=== PATIENT | female | born 1980 | race Caucasian/White ===

== ENCOUNTER → 2016-11-13 | Outpatient (CLI) | payer OTHER ==
[~2016-11-13] MED LIST: AVIATAB PO; TYLE650T30 PO
[2016-11-13 18:10] LABS: BASO % 0.4 % (0.0-1.0); EOS # 0.1 K/mm3 (0.0-0.50); LARGE UNSTAINED CELL # 0.2 K/mm3 (0.0-0.4); LARGE UNSTAINED CELL % 3.9 % (0.0-4.0); LYMPH # 1.5 K/mm3 (1.5-4.5); LYMPH % 24.4 % (24.0-44.0); MEAN CORPUSCULAR HEMOGLOBIN 32.8 pg (27.0-33.0); MEAN CORPUSCULAR HGB CONC 33.9 g/dl (32.0-36.5); MEAN CORPUSCULAR VOLUME 96.6 fl (80.0-96.0); MONO # 0.3 K/mm3 (0.0-0.8); MONO % 4.8 % (0.0-5.0); NEUTROPHILS # 3.8 K/mm3 (1.8-7.7); NEUTROPHILS % 64.4 % (36.0-66.0); PLATELET COUNT, AUTOMATED 269 k/mm3 (150-450); RED CELL DISTRIBUTION WIDTH 11.1 % (11.5-14.5); WHITE BLOOD COUNT 5.9 K/mm3 (4.0-10.0)
[2016-11-14 14:26] LABS: HIV SCRN NEGATIVE (NEGATIVE); HIV SCRN1 NEGATIVE (NEGATIVE)
[2016-11-14 14:27] LABS: CONTROL LINE INT CTR LINE PRESENT
[2016-11-15 11:04] LABS: HBsAg Prenatal NEGATIVE (NEGATIVE)
== END ==
LOC: M SMT 15:29
PROVIDERS: ATTEND Advanced Practice Midwife
DX: Z34.81 Encounter for supervision of other normal pregnancy, first trimester (principal); Z36 Encounter for antenatal screening of mother

== ENCOUNTER → 2017-04-05 | Outpatient (CLI) | payer OTHER ==
[~2017-04-05] MED LIST changes: +ACET50TA PO; +IBUP-1114 PO; +PREN1TAB11 PO
[2017-04-05 15:05] LABS: BASO % 0.2 % (0.0-1.0); EOS # 0.1 K/mm3 (0.0-0.50); LARGE UNSTAINED CELL # 0.1 K/mm3 (0.0-0.4); LYMPH # 1.2 K/mm3 (1.5-4.5); LYMPH % 15.4 % (24.0-44.0); MEAN CORPUSCULAR HEMOGLOBIN 32.1 pg (27.0-33.0); MEAN CORPUSCULAR HGB CONC 34.7 g/dl (32.0-36.5); MEAN CORPUSCULAR VOLUME 92.6 fl (80.0-96.0); MONO # 0.2 K/mm3 (0.0-0.8); MONO % 3.4 % (0.0-5.0); NEUTROPHILS # 5.5 K/mm3 (1.8-7.7); NEUTROPHILS % 77.9 % (36.0-66.0); PLATELET COUNT, AUTOMATED 213 k/mm3 (150-450); RED CELL DISTRIBUTION WIDTH 12.4 % (11.5-14.5)
== END ==
LOC: M SMT 12:59 → MERGE 12:59
PROVIDERS: ATTEND Advanced Practice Midwife
DX: O09.513 Supervision of elderly primigravida, third trimester (principal)

== ENCOUNTER → 2017-04-12 | Outpatient (CLI) | payer OTHER ==
--- NOTE | 2017-04-13 08:11 | REP ---
Clinical: Growth evaluation. Comparison: 03/06/2017 . Findings: Examination demonstrates a single live intrauterine in cephalic presentation. motion is identified by technologist. Placenta is noted anteriorly and grade zero without evidence for placenta previa or abruption. Amniotic fluid volume is normal. Cervix measures 4.0 cm in length and appears closed. No evidence for nuchal cord. Gestational age by LMP 28 weeks 6 days with LUCHO 06/29/2017 . Gestational age by current measurements 27 weeks 5 days with LUCHO 07/07/2017 . FHR equals 133 beats per minute. Estimated weight 1127 grams ( 44th percentile). Amniotic fluid index equals 13.8 cm (9.4 - 22.7). Impression: Single live advanced gestation in cephalic presentation demonstrating appropriate interval growth. Estimated weight and amniotic fluid index are within normal range. Signed by Naeem Kimble MD 04/13/2017 04:32 A
== END ==
LOC: M WHC 09:59
PROVIDERS: ATTEND Specialist
DX: O36.5921 Maternal care for other known or suspected poor fetal growth, second trimester, fetus 1 (principal); Z3A.28 28 weeks gestation of pregnancy

== ENCOUNTER → 2017-04-16 | Outpatient (CLI) | payer OTHER | LOC: M LAB 07:49 → MERGE 09:49 | PROVIDERS: ATTEND Specialist | DX: O09.512 Supervision of elderly primigravida, second trimester (principal) ==

== ENCOUNTER → 2017-05-04 | Outpatient (CLI) | payer OTHER ==
--- NOTE | 2017-05-04 12:00 | REP ---
OB ULTRASOUND: Real-time sonographic evaluation of the gravid uterus is performed. There is a single living intrauterine gestation. Estimated gestational age 32 weeks 0 days, EDC 06/29/2017. Today's measurements indicate appropriate growth. Biometry and Growth: BPD 79 mm = 31 weeks 5 days, 45th percentile HC 299 mm = 33 weeks 1 day, 67th percentile AC 261 mm = 30 weeks 1 day, 23rd percentile FL 58 mm = 30 weeks 2 days, 25th percentile HC/AC ratio 1.15 slightly above normal range of 0.95 to 1.14. Estimated weight 1611 grams 17th percentile. stomach, kidneys, bladder and spine are visualized and are grossly unremarkable. Cervical length: Closed and measures 4.2 cm in length heart rate: 136 beats per minute. position: Vertex. Placenta: Anterior and grade 0 with no previa or abruption. Amniotic fluid: Amniotic fluid within normal limits, ADALID 12.5 within normal range of 8.6 to 24.2. S/D ratio 3.40 within normal range. RI 0.76, slightly above normal range of 0.59 to 0.75.
== END ==
LOC: M WHC 10:21
PROVIDERS: ATTEND Obstetrics & Gynecology
DX: Z34.82 Encounter for supervision of other normal pregnancy, second trimester (principal); Z36 Encounter for antenatal screening of mother; Z3A.32 32 weeks gestation of pregnancy

== ENCOUNTER → 2017-05-22 | Outpatient (CLI) | payer OTHER ==
--- NOTE | 2017-05-22 14:57 | REP ---
Clinical: Growth evaluation. Comparison: 05/04/2017 . Findings: Examination demonstrates a single live intrauterine in cephalic presentation. motion is identified by technologist. Placenta is noted anteriorly and grade one without evidence for placenta previa or abruption. Amniotic fluid volume is normal. Gestational age by LMP 34 weeks 4 days with LUCHO 06/29/2017 . Gestational age by current measurements 32 weeks 4 days with LUCHO 07/13/2017 . FHR equals 147 beats per minute. BPD 8.4 cm 33 weeks 4 days HC 30.1 cm 33 weeks 3 days AC 28.6 cm 32 weeks 4 days FL 6.3 cm 32 weeks 4 days HC/AC ratio 1.05 Estimated weight 2040 grams ( 15th percentile). Umbilical cord SD ratio 3.45 (2.00 - 3.00). Amniotic fluid index 7.6 cm (8.0 - 24.9). Impression: 1. Single live advanced intrauterine in cephalic presentation demonstrating relatively appropriate interval growth with the estimated weight remaining within normal range. 2. Amniotic fluid volume is low normal. 3. SD ratio is minimally elevated. Signed by Naeem Kimble MD 05/22/2017 02:49 P
== END ==
LOC: M SMT 13:57
PROVIDERS: ATTEND Advanced Practice Midwife
DX: O26.843 Uterine size-date discrepancy, third trimester (principal); Z3A.34 34 weeks gestation of pregnancy

== ENCOUNTER → 2017-05-29 | Outpatient (CLI) | payer OTHER ==
--- NOTE | 2017-05-30 06:07 | REP ---
OB ULTRASOUND AND BIOPHYSICAL PROFILE: Real-time sonographic evaluation of the gravid uterus performed. There is a single living intrauterine gestation. Estimated gestational age 35 weeks 4 days. EDC 06/29/2017. Cervix is not well visualized due to shadowing from the cranium. heart rate is 141 beats per minute. Amniotic fluid appears low for the estimated gestational age. ADALID is measured to be 6.4 which is below normal range of 7.8 - 24.9. Biophysical profile score is 4 out of 8 with no points for tone or movement. S/d ratio 2.85 within normal range of 2.0 - 3.0. RI 0.65 within normal range of 0.59 - 0.75. position vertex. Placenta is anterior and on the right, grade 1 with no previa or abruption. IMPRESSION: Biophysical profile score 4 out of 8.
== END ==
LOC: M WHC 14:28
PROVIDERS: ATTEND Advanced Practice Midwife
DX: O26.843 Uterine size-date discrepancy, third trimester (principal); Z3A.35 35 weeks gestation of pregnancy

== ENCOUNTER 2017-05-30 09:19 | Outpatient (CLI) | payer OTHER ==
[~2017-05-30] VITALS: Ht 170.2 cm; Wt 68.4 kg
[~2017-05-30 09:19] MED LIST changes: -ACET50TA PO; -IBUP-1114 PO; -PREN1TAB11 PO
[2017-05-30 09:38] VITALS: BP 113/73
[2017-05-30] MEDS ORDERED: PREN1TAB11 PO (09:40)
[2017-05-30 11:05] VITALS: BP 101/67
== END 2017-05-30 11:27 | disposition home or self-care (01) ==
LOC: M LDO 09:19
PROVIDERS: ATTEND Specialist
DX: Z34.83 Encounter for supervision of other normal pregnancy, third trimester (principal); Z3A.35 35 weeks gestation of pregnancy

== ENCOUNTER 2017-06-05 15:03 | Inpatient (IN) | payer OTHER ==
[~2017-06-05] VITALS: Ht 170.2 cm; Wt 68.7 kg
[~2017-06-05 15:03] MED LIST changes: -ACET50TA PO; -IBUP-1114 PO
[2017-06-05] MEDS: BETAMETHASONE SOLUSPAN 6MG/ML INJ 5ML (J0702) IM SCH (16:30)
[2017-06-05 17:02] LABS: MEAN CORPUSCULAR HEMOGLOBIN 30.4 pg (27.0-33.0); MEAN CORPUSCULAR HGB CONC 33.4 g/dl (32.0-36.5); RED CELL DISTRIBUTION WIDTH 12.5 % (11.5-14.5); WHITE BLOOD COUNT 8.4 10^3/uL (4.0-10.0)
[2017-06-05 20:09] VITALS: BP 102/56
[2017-06-05 23:48] VITALS: BP 100/67
[2017-06-05] MEDS: miSOPROStol 50 MCG 1/2 TAB (S0191) PO SCH (23:48)
[2017-06-06] VITALS (46 sets, daily range): BP systolic 94–126; BP diastolic 50–74
[2017-06-06] MEDS: BETAMETHASONE SOLUSPAN 6MG/ML INJ 5ML (J0702) IM SCH (05:27)
--- NOTE | 2017-06-06 05:29 | HPE ---
DATE OF ADMISSION: 06/05/2017 REASON FOR ADMISSION: Induction of labor secondary to oligohydramnios. HISTORY OF PRESENT ILLNESS: Mrs. Rene is a 36-year-old one who presents at 36 weeks and one day estimated gestational age by last menstrual period confirmed by first trimester ultrasound for induction of labor secondary to oligohydramnios with intrauterine growth restriction in the eighth percentile. Mrs. Rene's course has been complicated by concerns for intrauterine growth restriction. She was noted to be measuring at 16 percentile on her anatomy ultrasound. She has been followed with serial growth ultrasounds, as well as antepartum testing. On today's scheduled appointment, she was noted to have an amniotic fluid index (ADALID) of 4.3 with a 6/8 biophysio-profile. She was then sent to labor and delivery on my recommendation for induction of labor. PAST MEDICAL HISTORY: None. PAST SURGICAL HISTORY: None. PAST OBSTETRICAL HISTORY: She is 1, para 0. MEDICATIONS: Include vitamins. ALLERGIES: She has no known drug allergies. SOCIAL HISTORY: She denies any alcohol, tobacco or drug use during the . PHYSICAL EXAMINATION: VITAL SIGNS: Stable. She is afebrile. GENERAL APPEARANCE: Is well appearing. No acute distress. She has a category one heart trace with no contractions. LUNGS: Clear to auscultation bilaterally. CARDIOVASCULAR: Heart regular rate and rhythm. ABDOMEN: Soft, gravid, nontender. CERVICAL EXAM: Cervix is long and closed. LABORATORY DATA: Blood type is O positive. Antibody screen is negative. Rubella immune. RPR nonreactive. Hepatitis surface antigen negative. HIV negative. Hepatitis C nonreactive. Chlamydia and gonorrhea screen negative. She has an elevated one-hour Glucola with a normal glucose tolerance test. Her GBS status is unknown. ASSESSMENT: 1. Mrs. Rene is a 36-year-old 1 at 36 weeks and one day with oligohydramnios. 2. Intrauterine growth restriction. 3. Currently reassuring status with category one heart tracing. PLAN: 1. Admit to labor and delivery. Complete blood count (CBC), rapid plasma reagin (RPR), type and screen. 2. We will initiate steroids for lung maturity. I will also collect a group B strep vaginal and rectal culture. 3. I will initiate her induction of labor with 50 mcg 4. I have counseled the couple regarding her diagnosis and plan of care. She has also been verbal consented for emergency surgery, blood products and anesthesia, and desires to proceed with above plan. NITA
[2017-06-06] MEDS: miSOPROStol 50 MCG 1/2 TAB (S0191) PO SCH ×2 (06:11→10:39)
[2017-06-06] MEDS ORDERED: PROMETHAZINE INJ 25 MG/ML VIAL (J2550) IV ONE (13:00)
[2017-06-06] MEDS ORDERED: BUTORPHANOL 2 MG/ML INJ (J0595) IV ONE (13:00)
[2017-06-06] MEDS ORDERED: LACTATED RINGER'S 1000 ML IV STA (14:19)
[2017-06-06] MEDS ORDERED: LR 1,000 ML IV SCH (14:19)
[2017-06-06] MEDS ORDERED: PENICILLIN G POTASSIUM IV 5 MU in D5W MINI-BAG PLUS 100 ML IV STA (14:20)
[2017-06-06] MEDS ORDERED: OXYTOCIN DRIP 30 UNITS in APPROPRIATE DILUENT 1 EA IV SCH (14:30)
[2017-06-06] MEDS ORDERED: FENTANYL 2MCG/ML ROPIVACAINE 0.2% IN 0.9% NACL 200ML IVBAG As Ordered ONE (15:25)
[2017-06-06] MEDS ORDERED: REFRIGERATOR IV KEYS XX PRN (18:00)
[2017-06-06] MEDS ORDERED: NALOXONE INJ 0.4 MG/1 ML VIAL (J2310) IV PRN (18:00)
[2017-06-06] MEDS ORDERED: ePHEDrine SULFATE 25 MG/5 ML(5MG/ML) SYRINGE IV PRN (18:00)
[2017-06-06] MEDS ORDERED: EPIDURAL/PCA KEYS XX PRN (18:00)
[2017-06-06] MEDS ORDERED: FENTANYL/ROPIVACAINE/NACL BAG 200 ML EPIDURAL SCH (18:00)
[2017-06-06] MEDS ORDERED: EPIDURAL COMMENT XX SCH (18:00)
[2017-06-06] MEDS ORDERED: LACTATED RINGER'S 1000 ML IV PRN (18:00)
[2017-06-06] MEDS ORDERED: diphenhydrAMINE INJ 50MG/ML VIAL (J1200) IV PRN (18:00)
[2017-06-06] MEDS ORDERED: ONDANSETRON 4MG/2ML VIAL (J2405) IV PRN (18:00)
[2017-06-06] MEDS: PENICILLIN G POTASSIUM IV 2.5 MU in D5W 100 ML IV SCH (18:20)
[2017-06-07] VITALS (33 sets, daily range): BP systolic 94–117; BP diastolic 55–77
[2017-06-07] MEDS: PENICILLIN G POTASSIUM IV 2.5 MU in D5W 100 ML IV SCH ×3 (02:22→10:35)
[2017-06-07 12:58] LABS: CORD GAS ABE A -0.7; CORD GAS HCO3 A 27.4 MEQ/L; CORD GAS O2 SAT A 24.1 %; CORD GAS PCO2 A 58.5 mmHg; CORD GAS PH A 7.289 UNITS; CORD GAS SBC A 21.9 MEQ/L; CORD GAS TCO2 A 29.2 MEQ/L
[2017-06-07 13:01] LABS: CORD GAS HCO3 V 23.5 MEQ/L; CORD GAS O2 SAT V 64.3 %; CORD GAS PCO2 V 42.7 mmHg; CORD GAS PH V 7.358 UNITS; CORD GAS PO2 V 25.3 mmHg; CORD GAS SBC V 21.9 MEQ/L; CORD GAS TCO2 V 24.8 MEQ/L
[2017-06-07] MEDS ORDERED: OXYTOCIN DRIP 30 UNITS in APPROPRIATE DILUENT 1 EA IV SCH (13:42)
--- NOTE | 2017-06-07 13:42 | DN ---
DATE: 06/05/2017 Jannette is a 36-year-old. 1, para 0-1-0-1 now who was admitted to labor and delivery for induction of labor due to oligohydramnios and intrauterine growth restriction (IUGR). She had a few doses of misoprostol, artificial rupture of membranes and IV Pitocin and labor did ensue. She did utilize an epidural for her labor coping. She progressed to full dilation at 11:48. She pushed to a normal spontaneous vaginal delivery of a live female infant in OA position with restitution to LOT position at 12:36. There was no nuchal cord. The shoulders delivered with gentle downward traction and the corpus immediately followed. The was placed on the maternal abdomen crying and active. Mouth and nares were bulb suctioned. The cord was clamped times two and cut by the father of the baby. Uterine hemostasis was achieved with IV Pitocin rapid infusion and uterine fundal massage. Estimated blood loss 350 mL. Perineum and vagina were inspected and noted to have a first-degree midline laceration with a right labial laceration. Both lacerations repaired under epidural anesthesia with #3-0 Rapide in the usual fashion. female weighed 4 pounds 12 ounces, 2106 grams, scores of 7 and 8. The family is undecided at this time of what they want to name their daughter and the mother plans to breastfeed. Delivery was performed by student nurse desk clerk, Frances Bueno, supervised by myself, Maxine Mayberry. At the close of delivery, lap counts, needle counts and instrument counts were correct and verified.
[2017-06-07] MEDS ORDERED: ANUSOL HC CREAM 30GM TOP PRN (13:45)
[2017-06-07] MEDS ORDERED: RHOGAM 300 MCG (1500 IU) INJ (J2790) IM SCH (13:45)
[2017-06-07] MEDS ORDERED: METHYLERGONOVINE MALEATE 0.2 MG TAB PO PRN (13:45)
[2017-06-07] MEDS ORDERED: DIBUCAINE 1% OINTMENT 30GM TOP PRN (13:45)
[2017-06-07] MEDS ORDERED: DOCUSATE SODIUM 100 MG CAP PO PRN (13:45)
[2017-06-07] MEDS ORDERED: MEASLES,MUMPS,RUBELLA VACCINE INJ (MMR-II) (90707) SC SCH (13:45)
[2017-06-07] MEDS: IBUPROFEN 600 MG TAB PO PRN ×2 (14:03→23:30)
[2017-06-07] MEDS: PRENATAL VITAMINS CHEWABLE TABLET PO SCH (20:13)
[2017-06-07] MEDS: ACETAMINOPHEN 500 MG TAB PO PRN (20:14)
[2017-06-08] MEDS: ACETAMINOPHEN 500 MG TAB PO PRN ×2 (03:10→14:05)
[2017-06-08 06:25] VITALS: BP 112/67
[2017-06-08] MEDS: PRENATAL VITAMINS CHEWABLE TABLET PO SCH (08:02)
[2017-06-08] MEDS: IBUPROFEN 600 MG TAB PO PRN ×2 (08:02→16:56)
[2017-06-08 18:19] VITALS: BP 103/65
[2017-06-09] MEDS: IBUPROFEN 600 MG TAB PO PRN (03:45)
[2017-06-09 06:13] VITALS: BP 101/61
[2017-06-09] MEDS: PRENATAL VITAMINS CHEWABLE TABLET PO SCH (07:49)
[2017-06-09] MEDS: ACETAMINOPHEN 500 MG TAB PO PRN (07:49)
[2017-06-09] MEDS ORDERED: ACET50TA PO (09:39)
[2017-06-09] MEDS ORDERED: IBUP-1114 PO (09:39)
== END 2017-06-09 10:30 | disposition home or self-care (01) | DRG 775 ==
LOC: M LDI 15:03 → M OBS 06-07 15:00
PROVIDERS: ADMIT Obstetrics & Gynecology; ATTEND Obstetrics & Gynecology
PROC: 10E0XZZ Delivery of Products of Conception, External Approach (ICD-10-PCS; principal; 2017-06-05)
PROC: 0HQ9XZZ Repair Perineum Skin, External Approach (ICD-10-PCS; 2017-06-05)
PROC: 3E033VJ Introduction of Other Hormone into Peripheral Vein, Percutaneous Approach (ICD-10-PCS; 2017-06-05)
PROC: 10907ZC Drainage of Amniotic Fluid, Therapeutic from Products of Conception, Via Natural or Artificial Opening (ICD-10-PCS; 2017-06-05)
DX: O41.03X0 Oligohydramnios, third trimester, not applicable or unspecified (principal); Z37.0 Single live birth; Z3A.36 36 weeks gestation of pregnancy; O09.523 Supervision of elderly multigravida, third trimester; O70.0 First degree perineal laceration during delivery

== ENCOUNTER → 2017-06-05 | Outpatient (CLI) | payer OTHER ==
[~2017-06-05] MED LIST changes: +ACET50TA PO; +IBUP-1114 PO; +PREN1TAB11 PO
--- NOTE | 2017-06-05 10:20 | REP ---
OB ULTRASOUND AND BIOPHYSICAL PROFILE: Real-time sonographic evaluation of the gravid uterus performed. There is a single living intrauterine gestation. The estimated gestational age is 36 weeks 4 days. EDC 06/29/2017. Today's measurements indicate appropriate growth. BPD 86 mm 34 weeks 6 days, 24th percentile HC 318 mm 35 weeks 6 days, 39th percentile AC 303 mm 34 weeks 2 days, 16th percentile FL 67 mm 34 weeks 2 days, 15th percentile HC/AC ratio 1.05 within normal range. Estimated weight 2440 grams, 18th percentile. heart rate 144 beats per minute. Amniotic fluid appears oligohydramnios with ADALID 4.3, below the normal range of 7.6 - 24.6. Biophysical profile score is 6 out of 8 with no points for movement. S/d ratio 3.0 with slightly above normal range of 1.77 - 2.77. RI 0.70 is within normal range of 0.59 - 0.75. The intracranial structures appear grossly unremarkable as does four chamber heart, stomach, kidneys, bladder and spine. position vertex. Placenta is anterior and grade 1 with no previa or abruption.
== END ==
LOC: M WHC 07:35
PROVIDERS: ATTEND Advanced Practice Midwife
DX: O26.843 Uterine size-date discrepancy, third trimester (principal)

== ENCOUNTER 2018-10-05 10:20 | Emergency (ER) | payer OTHER ==
[~2018-10-05] VITALS: Ht 170.2 cm; Wt 63.6 kg
[~2018-10-05 10:20] MED LIST changes: +IBUP-1114 PO; +MAPA500T2 PO
[2018-10-05] MEDS ORDERED: SRONYX PO (10:25)
[2018-10-05] MEDS ORDERED: NS 1,000 ML IV ONE (10:45)
[2018-10-05] MEDS ORDERED: KETOROLAC 30 MG/ML VIAL (J1885) IV ONE (11:15)
[2018-10-05 11:20] LABS: BASO % 0.7 % (0.0-1.0); EOS # 0.1 10^3/uL (0.0-0.50); EOS % 1.8 % (0.0-3.0); HEMOGLOBIN 13.5 g/dl (12.0-15.5); LYMPH % 22.9 % (24.0-44.0); MEAN CORPUSCULAR HEMOGLOBIN 32.2 pg (27.0-33.0); MEAN CORPUSCULAR HGB CONC 32.9 g/dl (32.0-36.5); MEAN CORPUSCULAR VOLUME 97.9 fl (80.0-96.0); MONO # 0.3 10^3/uL (0.0-0.8); MONO % 6.8 % (0.0-5.0); NEUTROPHILS % 67.6 % (36.0-66.0); PLATELET COUNT, AUTOMATED 226 10^3/uL (150-450); RED BLOOD COUNT 4.19 10^6/uL (4.00-5.40); WHITE BLOOD COUNT 4.4 10^3/uL (4.0-10.0)
[2018-10-05 11:48] LABS: ALBUMIN 3.9 GM/DL (3.2-5.2); ALT/SGPT 109 U/L (12-78); AMYLASE 66 U/L (25-115); BILIRUBIN,DIRECT 0.1 MG/DL (0.0-0.2); BILIRUBIN,TOTAL 0.4 MG/DL (0.2-1.0); BLOOD UREA NITROGEN 10 MG/DL (7-18); CARBON DIOXIDE LEVEL 26 MEQ/L (21-32); CHLORIDE LEVEL 102 MEQ/L (98-107); CREATININE FOR GFR 0.66 MG/DL (0.55-1.30); GLOMERULAR FILTRATION RATE > 60.0 (>60); GLUCOSE, FASTING 106 MG/DL (70-100); LIPASE 197 U/L (73-393); SODIUM LEVEL 136 MEQ/L (136-145); TOTAL PROTEIN 8.1 GM/DL (6.4-8.2)
--- NOTE | 2018-10-05 12:09 | REP ---
Clinical: Bilateral flank pain. Technique: Axial noncontrast images from the lung bases to the pubic symphysis with coronal and sagittal re-formations. Findings: Lung bases are clear. Liver, spleen, pancreas, gallbladder, bilateral adrenal glands and kidneys are normal for noncontrast evaluation. Specifically, no perinephric stranding, hydroureteronephrosis, intrarenal or obstructing ureteral calculi are identified. The enteric system is without obstruction or acute inflammatory process. Pelvis demonstrates normal bladder and age-appropriate uterus/adnexa. No ascites. No free air. No adenopathy. Abdominal aorta without aneurysm. Musculoskeletal structures intact without focal osseous abnormality. Impression: No acute abdominopelvic pathology appreciated. Electronically Signed by Naeem Kimble MD 10/05/2018 12:01 P
[2018-10-05 12:20] VITALS: BP 121/80
--- NOTE | 2018-10-05 13:37 | REP ---
Clinical: Pelvic pain . Technique: Transabdominal pelvic ultrasound followed by transvaginal examination for better evaluation of the endometrium and adnexa with color Doppler evaluation of the ovaries. Findings: Bladder is unremarkable and measures 9.2 x 5.3 x 4.5 cm . Heterogeneous prominent anteverted uterus measures 7.2 x 3.0 x 4.0 cm . The endometrial complex measures 2.3 mm thickness. No discrete uterine or endometrial abnormalities are appreciated. Bilateral ovaries are normal in appearance and vascularity without evidence for torsion. Right ovary measures 2.4 x 1.8 x 2.4 cm ; R I = 0.57 . Left ovary measures 2.2 x 1.8 x 1.8 cm ; R I = 0.59 . No pelvic fluid or adnexal mass lesion . Impression: 1. Heterogeneous uterus. No discrete abnormalities identified. 2. Normal ovaries without evidence for torsion. 3. No pelvic free fluid or adnexal mass lesion. Electronically Signed by Naeem Kimble MD 10/05/2018 01:29 P
== END 2018-10-05 14:17 | disposition home or self-care (01) ==
LOC: M ED 10:20
DX: R10.30 Lower abdominal pain, unspecified (principal); Z79.3 Long term (current) use of hormonal contraceptives
CPT/HCPCS: 74176; 76830; 76856; 80048; 80076; 81001; 81025; 82150; 83690; 85025; 87086; 93976; 96374; 99284; J1885

== ENCOUNTER → 2019-01-10 | Outpatient (REF) | payer OTHER ==
[~2019-01-10] MED LIST changes: +SRONYX PO
== END ==
LOC: M LAB REF 13:35
PROVIDERS: ATTEND Advanced Practice Midwife
DX: Z12.4 Encounter for screening for malignant neoplasm of cervix (principal); Z11.51 Encounter for screening for human papillomavirus (HPV)
CPT/HCPCS: 87624; G0123

== ENCOUNTER → 2020-07-02 | Outpatient (CLI) | payer OTHER ==
[~2020-07-02] MED LIST changes: +LEVOTAB18; +PANT40TA29
== END ==
LOC: M LABSMTC 11:04
PROVIDERS: ATTEND Anesthesiology
DX: Z01.812 Encounter for preprocedural laboratory examination (principal); Z20.828 Contact with and (suspected) exposure to other viral communicable diseases
CPT/HCPCS: C9803; U0003

== ENCOUNTER 2020-07-07 07:30 | Day surgery (SDC) | payer OTHER ==
[~2020-07-07] VITALS: Ht 170.2 cm; Wt 73.5 kg
[~2020-07-07 07:30] MED LIST changes: +NS 1,000 ML IV ONE
[2020-07-07] MEDS ORDERED: LIDOCAINE 2% 100MG/5ML SDV (FOR ANES.) As Ordered ONE (07:32)
[2020-07-07] MEDS ORDERED: propofoL 200 MG/20 ML VIAL As Ordered ONE ×2 (07:32→09:01)
[2020-07-07] MEDS ORDERED: fentaNYL 100 MCG/2 ML INJECTION (J3010) As Ordered ONE (08:42)
--- NOTE | 2020-07-07 09:14 | ROOR ---
Patient Name: Jannette Rene Procedure Date: 07/07/2020 8:40 AM Date of : 1980 Age: 40 Room: [facility] Gender: Female Note Status: Finalized Procedure: Upper GI endoscopy Indications: Heartburn Providers: DO David Veloz MD: Nat Fink MD Requesting Provider: Medicines: Propofol per Anesthesia Complications: No immediate complications. Procedure: Pre-Anesthesia Assessment: - Prior to the procedure, a History and Physical was performed, and patient medications and allergies were reviewed. The patient is competent. The risks and benefits of the procedure and the sedation options and risks were discussed with the patient. All questions were answered and informed consent was obtained. Patient identification and proposed procedure were verified by the physician, the nurse, the anesthesiologist and the transportation planning technician in the endoscopy suite. Mental Status Examination: alert and oriented. Airway Examination: normal oropharyngeal airway and neck mobility. Respiratory Examination: clear to auscultation. CV Examination: normal. Prophylactic Antibiotics: The patient does not require prophylactic antibiotics. Prior Anticoagulants: The patient has taken no previous anticoagulant or antiplatelet agents. ASA Grade Assessment: II - A patient with mild systemic disease. After reviewing the risks and benefits, the patient was deemed in satisfactory condition to undergo the procedure. The anesthesia plan was to use monitored anesthesia care (MAC). Immediately prior to administration of medications, the patient was re-assessed for adequacy to receive sedatives. The heart rate, respiratory rate, oxygen saturations, blood pressure, adequacy of pulmonary ventilation, and response to care were monitored throughout the procedure. The physical status of the patient was re-assessed after the procedure. The Endoscope was introduced through the mouth, and advanced to the third part of duodenum. The upper GI endoscopy was accomplished without difficulty. The patient tolerated the procedure well. Findings: Localized mild inflammation characterized by congestion (edema) and friability was found in the prepyloric region of the stomach. Biopsies were taken with a cold forceps for Helicobacter pylori testing. Estimated blood loss was minimal. Impression: - Gastritis. Biopsied. Recommendation: - Patient has a contact number available for emergencies. The signs and symptoms of potential delayed complications were discussed with the patient. Return to normal activities tomorrow. Written discharge instructions were provided to the patient. - Await pathology results. Jasen Martinez DO 07/07/2020 9:13:54 AM Electronically signed by Jasen Martinez DO Number of Addenda: 0 Note Initiated On: 07/07/2020 8:40 AM Estimated Blood Loss: Estimated blood loss was minimal.
--- NOTE | 2020-07-07 09:18 | ROOR ---
Patient Name: Jannette Rene Procedure Date: 07/07/2020 8:41 AM Date of : 1980 Age: 40 Room: [facility] Gender: Female Note Status: Finalized Procedure: Colonoscopy Indications: Family history of colon cancer in a first-degree relative before age 60 years Providers: DO David Veloz MD: Nat Fink MD Requesting Provider: Medicines: Propofol per Anesthesia Complications: No immediate complications. Procedure: Pre-Anesthesia Assessment: - Prior to the procedure, a History and Physical was performed, and patient medications and allergies were reviewed. The patient is competent. The risks and benefits of the procedure and the sedation options and risks were discussed with the patient. All questions were answered and informed consent was obtained. Patient identification and proposed procedure were verified by the physician, the nurse, the anesthesiologist and the compressor service technician in the endoscopy suite. Mental Status Examination: alert and oriented. Airway Examination: normal oropharyngeal airway and neck mobility. Respiratory Examination: clear to auscultation. CV Examination: normal. Prophylactic Antibiotics: The patient does not require prophylactic antibiotics. Prior Anticoagulants: The patient has taken no previous anticoagulant or antiplatelet agents. ASA Grade Assessment: II - A patient with mild systemic disease. After reviewing the risks and benefits, the patient was deemed in satisfactory condition to undergo the procedure. The anesthesia plan was to use monitored anesthesia care (MAC). Immediately prior to administration of medications, the patient was re-assessed for adequacy to receive sedatives. The heart rate, respiratory rate, oxygen saturations, blood pressure, adequacy of pulmonary ventilation, and response to care were monitored throughout the procedure. The physical status of the patient was re-assessed after the procedure. The Colonoscope was introduced through the anus and advanced to the cecum, identified by appendiceal orifice and ileocecal valve. The colonoscopy was performed without difficulty. The patient tolerated the procedure well. Findings: Non-bleeding internal hemorrhoids were found during retroflexion. The hemorrhoids were mild. The exam was otherwise without abnormality. Impression: - Non-bleeding internal hemorrhoids. - The examination was otherwise normal. - No specimens collected. Recommendation: - Patient has a contact number available for emergencies. The signs and symptoms of potential delayed complications were discussed with the patient. Return to normal activities tomorrow. Written discharge instructions were provided to the patient. - Repeat colonoscopy in 3 - 5 years for screening purposes. Jasen Martinez DO 07/07/2020 9:17:27 AM Electronically signed by Jasen Martinez DO Number of Addenda: 0 Note Initiated On: 07/07/2020 8:41 AM Estimated Blood Loss: Estimated blood loss: none.
[2020-07-07 09:35] VITALS: BP 156/87
== END 2020-07-07 10:15 | disposition home or self-care (01) ==
LOC: M OPP 07:30
PROVIDERS: ATTEND Surgery
DX: Z12.11 Encounter for screening for malignant neoplasm of colon (principal); Z80.0 Family history of malignant neoplasm of digestive organs; K64.8 Other hemorrhoids; K29.70 Gastritis, unspecified, without bleeding; R12 Heartburn; Z79.3 Long term (current) use of hormonal contraceptives
CPT/HCPCS: 43239; 45378; 88305; J3010

== ENCOUNTER → 2021-06-17 | Outpatient (REF) | payer OTHER ==
[~2021-06-17] MED LIST changes: -NS 1,000 ML IV ONE
== END ==
LOC: M LAB REF 14:19
PROVIDERS: ATTEND Nurse Practitioner Family
DX: Z01.419 Encounter for gynecological examination (general) (routine) without abnormal findings (principal)

== ENCOUNTER 2021-12-30 12:05 | Emergency (ER) | payer OTHER ==
[~2021-12-30] VITALS: Ht 172.7 cm; Wt 70.5 kg
[2021-12-30 12:20] VITALS: BP 141/91
[2021-12-30] MEDS ORDERED: NS 1,000 ML IV ONE (12:45)
[2021-12-30] MEDS ORDERED: ONDANSETRON 4MG/2ML VIAL IV ONE (12:45)
[2021-12-30] MEDS ORDERED: diazePAM 10MG/2ML SYRINGE (J3360 PER 5MG) IV ONE (12:45)
[2021-12-30 13:24] LABS: BASO % 0.4 % (0.0-1.0); EOS % 0.2 % (0.0-3.0); HEMOGLOBIN 13.4 g/dl (12.0-15.5); LYMPH # 0.6 10^3/uL (1.5-5.0); LYMPH % 11.9 % (24.0-44.0); MEAN CORPUSCULAR HEMOGLOBIN 35.4 pg (27.0-33.0); MEAN CORPUSCULAR HGB CONC 35.3 g/dl (32.0-36.5); MEAN CORPUSCULAR VOLUME 100.5 fl (80.0-96.0); MONO # 0.4 10^3/uL (0.0-0.8); MONO % 8.2 % (2.0-8.0); NEUTROPHILS # 4.1 10^3/uL (1.5-8.5); NEUTROPHILS % 78.9 % (36.0-66.0); PLATELET COUNT, AUTOMATED 128 10^3/uL (150-450); RED BLOOD COUNT 3.78 10^6/uL (4.00-5.40); WHITE BLOOD COUNT 5.1 10^3/uL (4.0-10.0)
[2021-12-30 13:49] LABS: CK-MB VALUE MASS < 1.0 NG/ML (<3.6); CPK CREATINE PHOSPHOKINASE 54 U/L (26-192); MB/CK RELATIVE INDEX 1.85 (< OR =4)
[2021-12-30 13:57] LABS: BLOOD UREA NITROGEN 6 MG/DL (7-18); CALCIUM LEVEL 8.3 MG/DL (8.5-10.1); CARBON DIOXIDE LEVEL 23 MEQ/L (21-32); CHLORIDE LEVEL 99 MEQ/L (98-107); CREATININE FOR GFR 0.54 MG/DL (0.55-1.30); ETHYL ALCOHOL (ETHANOL) 0.003 % (0.000-0.010); FREE T4 0.94 NG/DL (0.76-1.46); GLOMERULAR FILTRATION RATE > 60.0 (>58); GLUCOSE, FASTING 96 MG/DL (70-100); MAGNESIUM LEVEL 1.5 MG/DL (1.8-2.4); SODIUM LEVEL 134 MEQ/L (136-145); THYROID STIMULATING HORMONE 0.931 uIU/ML (0.358-3.740)
[2021-12-30] MEDS ORDERED: KETOROLAC 30 MG/ML 1ML VIAL IV ONE (15:40)
[2021-12-30] MEDS ORDERED: MECLIZINE 25 MG TABLET PO ONE (16:45)
[2021-12-30] MEDS ORDERED: MAGNESIUM OXIDE 400MG TAB (MAG-OX) PO ONE (16:45)
[2021-12-30] MEDS ORDERED: MECL1TAB31 PO (16:50)
[2021-12-30] MEDS ORDERED: FLON1SPR NARES (16:50)
[2021-12-30] MEDS ORDERED: DEBR6.5S4 AS (16:50)
== END 2021-12-30 17:15 | disposition home or self-care (01) ==
LOC: EDSEX 12:05 → EDBD 12:05 → M ED 12:05
DX: H81.4 Vertigo of central origin (principal); H65.01 Acute serous otitis media, right ear; H61.22 Impacted cerumen, left ear; E83.42 Hypomagnesemia; R94.31 Abnormal electrocardiogram [ECG] [EKG]; K21.9 Gastro-esophageal reflux disease without esophagitis; Z79.899 Other long term (current) drug therapy
CPT/HCPCS: 70450; 80048; 82077; 82550; 82553; 83735; 84439; 84443; 84484; 84702; 85025; 93005; 93041; 94760; 96361; 96374; 96375; 99285; J1885; J2405; J3360

== ENCOUNTER → 2022-07-04 | Outpatient (REF) | payer OTHER, SELFPAY ==
[~2022-07-04] MED LIST changes: +DEBR6.5S4 AS; +FLON1SPR NARES; +MECL1TAB31 PO
== END ==
LOC: M LAB REF 16:49
PROVIDERS: ATTEND Nurse Practitioner Family
DX: Z00.00 Encounter for general adult medical examination without abnormal findings (principal); N39.0 Urinary tract infection, site not specified

== ENCOUNTER 2022-10-14 01:49 | Inpatient (IN) | payer OTHER ==
[~2022-10-14] VITALS: Ht 170.2 cm; Wt 60.1 kg
[~2022-10-14 01:49] MED LIST changes: -PANT40TA29; +PANT40TA29 PO
[2022-10-14 03:25] LABS: BASO % 0.3 % (0.0-1.0); EOS % 0.2 % (0.0-3.0); HEMATOCRIT 43.3 % (36.0-47.0); HEMOGLOBIN 14.1 g/dl (12.0-15.5); LYMPH # 0.4 10^3/uL (1.5-5.0); LYMPH % 2.5 % (24.0-44.0); MEAN CORPUSCULAR HEMOGLOBIN 36.7 pg (27.0-33.0); MEAN CORPUSCULAR HGB CONC 32.6 g/dl (32.0-36.5); MEAN CORPUSCULAR VOLUME 112.8 fl (80.0-96.0); MONO # 1.2 10^3/uL (0.0-0.8); MONO % 8.2 % (2.0-8.0); NEUTROPHILS # 12.4 10^3/uL (1.5-8.5); NEUTROPHILS % 87.9 % (36.0-66.0); PLATELET COUNT, AUTOMATED 163 10^3/uL (150-450); RED BLOOD COUNT 3.84 10^6/uL (4.00-5.40); WHITE BLOOD COUNT 14.1 10^3/uL (4.0-10.0)
[2022-10-14 03:43] LABS: INR 1.12; PROTHROMBIN TIME 14.6 SECONDS (12.5-14.5)
[2022-10-14 03:47] LABS: LIPASE 44 U/L (12-53)
[2022-10-14 03:49] LABS: CK-MB VALUE MASS < 1.0 NG/ML (<3.6); CPK CREATINE PHOSPHOKINASE 55 U/L (34-145); MB/CK RELATIVE INDEX 1.81 (< OR =4)
[2022-10-14 03:50] LABS: AMYLASE 270 U/L (30-118); CPK CREATINE PHOSPHOKINASE 52 U/L (34-145)
[2022-10-14 03:53] LABS: ALBUMIN 4.1 G/DL (3.2-5.2); ALKALINE PHOSPHATASE 169 U/L (46-116); ALT/SGPT 102 U/L (7.0-40); AST/SGOT 254 U/L (<34); BILIRUBIN,DIRECT 1.8 MG/DL (<0.4); BILIRUBIN,TOTAL 3.3 MG/DL (0.3-1.2); BLOOD UREA NITROGEN 11 MG/DL (9-23); CALCIUM LEVEL 7.9 MG/DL (8.5-10.1); CARBON DIOXIDE LEVEL < 10.0 MMOL/L (20-31); CHLORIDE LEVEL 95 MMOL/L (98-107); CK-MB VALUE MASS < 1.0 NG/ML (<3.6); CREATININE FOR GFR 0.65 MG/DL (0.55-1.30); GLOMERULAR FILTRATION RATE > 60.0 (>58); GLUCOSE, FASTING 295 MG/DL (60-100); MB/CK RELATIVE INDEX 1.92 (< OR =4); POTASSIUM SERUM 5.1 MMOL/L (3.5-5.1); SODIUM LEVEL 133 MMOL/L (136-145); TOTAL PROTEIN 8.4 G/DL (5.7-8.2)
[2022-10-14] MEDS ORDERED: NS 1,000 ML IV ONE ×2 (04:50→06:25)
[2022-10-14] MEDS ORDERED: ONDANSETRON 4MG 2ML VIAL IV ONE (04:50)
[2022-10-14 05:52] LABS: VENOUS BASE EXCESS -21.2 (-2.0-2.0); VENOUS HCO3 7.6 MEQ/L (23.0-27.0); VENOUS O2 SATURATION 80.2 % (60.0-80.0); VENOUS PARTIAL PRESSURE CO2 26.7 mmHg (38.0-50.0); VENOUS PARTIAL PRESSURE O2 53.9 mmHg (30.0-50.0); VENOUS STANDARD HCO3 9.1 MEQ/L; VENOUS TOTAL CO2 8.4 MEQ/L (24.0-28.0)
[2022-10-14] MEDS: LIDOCAINE VISCOUS 2% SOLN 15ML UDC MT PRN ×2 (06:46→08:58)
[2022-10-14] MEDS ORDERED: INSULIN IV RATE CHANGE DOCUMENTATION ML/HR XX SCH (06:50)
[2022-10-14] MEDS ORDERED: HumuLIN R (REGULAR) INSULIN (NovoLIN R) **100U/ML** PER UNIT IV ONE (06:50)
[2022-10-14] MEDS ORDERED: INSULIN REGULAR IN 0.9 % NACL 100 UNIT in IV 1 EA IV SCH ×2 (06:50)
[2022-10-14] MEDS ORDERED: HOME MED LIST COMPLETE! XX SCH (07:00)
[2022-10-14 07:34] LABS: OSMOLALITY SERUM 310 MOSM/KG (275-295)
[2022-10-14 07:35] LABS: HCG, SERUM QUALITATIVE NEGATIVE (NEGATIVE); HEMOGLOBIN A1c 4.2 % (4.0-6.0)
[2022-10-14 07:37] LABS: RSV AMPLIFICATION NEGATIVE (NEGATIVE)
[2022-10-14] MEDS ORDERED: ONDANSETRON 4MG 2ML VIAL IV PRN (08:15)
[2022-10-14 08:25] LABS: SALICYLATE LEVEL < 3.0 MG/DL (<30)
[2022-10-14 08:42] LABS: MAGNESIUM LEVEL 1.7 MG/DL (1.8-2.4)
[2022-10-14] MEDS ORDERED: LR 1,000 ML IV SCH (09:00)
[2022-10-14] MEDS: ENOXAPARIN 40MG/0.4ML SYRINGE (J1650 PER 10MG) SC SCH (09:45)
[2022-10-14] MEDS: PANTOPRAZOLE 40MG VIAL IV SCH ×2 (09:45→20:53)
[2022-10-14 09:47] VITALS: BP 136/90
[2022-10-14] MEDS ORDERED: PROMETHAZINE 25MG/ML 1ML VIAL IV PRN (09:50)
[2022-10-14] MEDS: CHLORHEXIDINE GLUCONATE 0.12 % 15ML UDC (PERIDEX ORAL RINSE) MT SCH ×2 (10:10→20:53)
[2022-10-14] MEDS: SUCRALFATE SUSP 1GM/10ML UD PO PRN (10:41)
[2022-10-14 10:55] LABS: ETHYL ALCOHOL (ETHANOL) 0.003 % (0.000-0.010)
[2022-10-14 11:02] LABS: ALBUMIN 3.5 G/DL (3.2-5.2); ALKALINE PHOSPHATASE 131 U/L (46-116); ALT/SGPT 75 U/L (7.0-40); AST/SGOT 172 U/L (<34); BILIRUBIN,TOTAL 1.9 MG/DL (0.3-1.2); BLOOD UREA NITROGEN 10 MG/DL (9-23); CALCIUM LEVEL 7.4 MG/DL (8.5-10.1); CARBON DIOXIDE LEVEL < 10.0 MMOL/L (20-31); CHLORIDE LEVEL 106 MMOL/L (98-107); CREATININE FOR GFR 0.59 MG/DL (0.55-1.30); GLOMERULAR FILTRATION RATE > 60.0 (>58); GLUCOSE, FASTING 190 MG/DL (60-100); MAGNESIUM LEVEL 1.6 MG/DL (1.8-2.4); POTASSIUM SERUM 4.4 MMOL/L (3.5-5.1); SODIUM LEVEL 138 MMOL/L (136-145); TOTAL PROTEIN 7.2 G/DL (5.7-8.2)
[2022-10-14] MEDS: PIPERACILLIN/TAZOBACTAM SOD 4.5 GM in D5W MINI-BAG PLUS 50 ML IV SCH ×3 (11:16→22:03)
[2022-10-14 12:00] VITALS: BP 126/88
[2022-10-14] MEDS ORDERED: CALCIUM GLUCONATE 1,000 MG in D5W MINI-BAG PLUS 100 ML IV ONE (12:00)
[2022-10-14 12:56] LABS: ABG BASE EXCESS -16.4 (-2.0-2.0); ABG HCO3 8.7 MEQ/L (22.0-26.0); ABG O2 SATURATION 97.6 % (95.0-99.0); ABG PARTIAL PRESSURE CO2 20.3 mmHg (35.0-45.0); ABG PARTIAL PRESSURE O2 105.3 mmHg (75.0-100.0); ABG STANDARD HCO3 12.2 MEQ/L (22.0-26.0); ABG TOTAL CO2 9.4 MEQ/L (22.0-29.0); ABG pH (ARTERIAL) 7.252 UNITS (7.350-7.450)
[2022-10-14] MEDS ORDERED: LR 1,000 ML IV ONE (13:00)
[2022-10-14] MEDS ORDERED: MAG SULF 1GM/100ML (MAG RUN) 1 GM in IV 1 EA IV ONE (13:00)
[2022-10-14] MEDS ORDERED: SODIUM BICARBONATE 8.4% INJ 50ML SYRINGE IV STA (13:07)
[2022-10-14] MEDS: SODIUM BICARBONATE 150 MEQ in D5W 1,000 ML IV SCH (13:42)
[2022-10-14] MEDS: MAGIC MOUTHWASH SUSPENSION BTL SS PRN ×2 (13:42→19:37)
[2022-10-14] MEDS ORDERED: SODIUM PHOSPHATE INJ 30 MMOL in D5W 500 ML IV ONE (14:00)
[2022-10-14 15:00] VITALS: BP 128/83
[2022-10-14 17:05] LABS: ALBUMIN 3.1 G/DL (3.2-5.2); ALKALINE PHOSPHATASE 107 U/L (46-116); ALT/SGPT 59 U/L (7.0-40); AST/SGOT 130 U/L (<34); BILIRUBIN,TOTAL 1.6 MG/DL (0.3-1.2); BLOOD UREA NITROGEN 9 MG/DL (9-23); CALCIUM LEVEL 7.6 MG/DL (8.5-10.1); CARBON DIOXIDE LEVEL 18 MMOL/L (20-31); CHLORIDE LEVEL 103 MMOL/L (98-107); CREATININE FOR GFR 0.56 MG/DL (0.55-1.30); FREE T3 2.6 PG/ML (2.3-4.2); GLOMERULAR FILTRATION RATE > 60.0 (>58); GLUCOSE, FASTING 259 MG/DL (60-100); POTASSIUM SERUM 3.4 MMOL/L (3.5-5.1); SODIUM LEVEL 139 MMOL/L (136-145); THYROID STIMULATING HORMONE 1.175 uIU/ML (0.55-4.78); TOTAL PROTEIN 6.2 G/DL (5.7-8.2)
[2022-10-14] MEDS ORDERED: KCL 20MEQ IN 100ML SWI (KRUN) 20 MEQ in IV 1 EA IV SCH ×2 (17:25)
[2022-10-14] MEDS ORDERED: KCL 10MEQ/100ML SWI (KRUN) 10 MEQ in IV 1 EA IV ONE ×2 (18:00→19:00)
[2022-10-14] MEDS ORDERED: POTASSIUM CHLORIDE 10% LIQ 20MEQ/15ML UDC PO ONE (18:00)
[2022-10-14] MEDS ORDERED: GLUCOSE 4GM CHEW TABLET PO PRN (18:30)
[2022-10-14] MEDS ORDERED: DEXTROSE 50% 50ML SYRINGE IV PRN (18:30)
[2022-10-14] MEDS ORDERED: GLUCAGON INJ 1MG VIAL SC PRN (18:30)
[2022-10-14] MEDS: INSULIN LISPRO (NovoLOG) PER UNIT SC SCH ×2 (18:48→20:53)
[2022-10-14 20:00] VITALS: BP 131/88
[2022-10-14] MEDS ORDERED: BENZONATATE 100MG CAPSULE PO ONE (23:25)
[2022-10-14 23:33] LABS: ALKALINE PHOSPHATASE 99 U/L (46-116); ALT/SGPT 54 U/L (7.0-40); AST/SGOT 112 U/L (<34); BILIRUBIN,TOTAL 1.4 MG/DL (0.3-1.2); BLOOD UREA NITROGEN 9 MG/DL (9-23); CALCIUM LEVEL 7.4 MG/DL (8.5-10.1); CARBON DIOXIDE LEVEL 25 MMOL/L (20-31); CHLORIDE LEVEL 101 MMOL/L (98-107); CREATININE FOR GFR 0.55 MG/DL (0.55-1.30); GLOMERULAR FILTRATION RATE > 60.0 (>58); GLUCOSE, FASTING 197 MG/DL (60-100); MAGNESIUM LEVEL 1.6 MG/DL (1.8-2.4); PHOSPHORUS LEVEL 1.9 MG/DL (2.5-4.9); POTASSIUM SERUM 3.1 MMOL/L (3.5-5.1); SODIUM LEVEL 139 MMOL/L (136-145); TOTAL PROTEIN 6.1 G/DL (5.7-8.2)
[2022-10-15] VITALS: BP 126/83
[2022-10-15] MEDS: MAG SULF 1GM/100ML (MAG RUN) 1 GM in IV 1 EA IV SCH ×2 (00:20→01:17)
[2022-10-15] MEDS: SODIUM BICARBONATE 150 MEQ in D5W 1,000 ML IV SCH (02:31)
[2022-10-15] MEDS ORDERED: POTASSIUM PHOSPHATE INJ 20 MMOL in D5W 250 ML IV ONE (03:00)
[2022-10-15 04:00] VITALS: BP 145/97
[2022-10-15] MEDS: PIPERACILLIN/TAZOBACTAM SOD 4.5 GM in D5W MINI-BAG PLUS 50 ML IV SCH ×4 (05:10→23:27)
[2022-10-15] MEDS ORDERED: KCL 10MEQ/100ML SWI (KRUN) 10 MEQ in IV 1 EA IV ONE ×2 (06:00→14:00)
[2022-10-15 06:05] LABS: ABG BASE EXCESS 6.7 (-2.0-2.0); ABG HCO3 29.6 MEQ/L (22.0-26.0); ABG O2 SATURATION 94.6 % (95.0-99.0); ABG PARTIAL PRESSURE CO2 36.2 mmHg (35.0-45.0); ABG PARTIAL PRESSURE O2 65.7 mmHg (75.0-100.0); ABG STANDARD HCO3 30.5 MEQ/L (22.0-26.0); ABG TOTAL CO2 30.7 MEQ/L (22.0-29.0); ABG pH (ARTERIAL) 7.531 UNITS (7.350-7.450)
[2022-10-15 06:42] LABS: BASO % 0.2 % (0.0-1.0); HEMATOCRIT 32.1 % (36.0-47.0); LYMPH # 0.3 10^3/uL (1.5-5.0); LYMPH % 6.4 % (24.0-44.0); MEAN CORPUSCULAR HGB CONC 34.9 g/dl (32.0-36.5); MEAN CORPUSCULAR VOLUME 105.9 fl (80.0-96.0); MONO # 0.4 10^3/uL (0.0-0.8); MONO % 7.2 % (2.0-8.0); NEUTROPHILS # 4.3 10^3/uL (1.5-8.5); NEUTROPHILS % 85.8 % (36.0-66.0); RED BLOOD COUNT 3.03 10^6/uL (4.00-5.40)
[2022-10-15 07:10] LABS: HEMOGLOBIN 11.2 g/dl (12.0-15.5)
[2022-10-15 07:11] LABS: PLATELET COUNT, AUTOMATED 73 10^3/uL (150-450)
[2022-10-15 07:16] LABS: ALBUMIN 2.9 G/DL (3.2-5.2); ALKALINE PHOSPHATASE 95 U/L (46-116); ALT/SGPT 52 U/L (7.0-40); AST/SGOT 98 U/L (<34); BILIRUBIN,TOTAL 1.2 MG/DL (0.3-1.2); BLOOD UREA NITROGEN 6 MG/DL (9-23); CALCIUM LEVEL 7.4 MG/DL (8.5-10.1); CARBON DIOXIDE LEVEL 31 MMOL/L (20-31); CHLORIDE LEVEL 98 MMOL/L (98-107); CREATININE FOR GFR 0.47 MG/DL (0.55-1.30); GLOMERULAR FILTRATION RATE > 60.0 (>58); GLUCOSE, FASTING 197 MG/DL (60-100); POTASSIUM SERUM 3.2 MMOL/L (3.5-5.1); SODIUM LEVEL 136 MMOL/L (136-145); TOTAL PROTEIN 5.7 G/DL (5.7-8.2)
[2022-10-15] MEDS ORDERED: KCL 10MEQ/100ML SWI (KRUN) 10 MEQ in IV 1 EA IV SCH (07:35)
[2022-10-15] MEDS ORDERED: POTASSIUM CHLORIDE 10% LIQ 20MEQ/15ML UDC PO ONE (08:00)
[2022-10-15 08:17] VITALS: BP 119/84
[2022-10-15] MEDS: INSULIN LISPRO (NovoLOG) PER UNIT SC SCH ×4 (08:19→21:00)
[2022-10-15] MEDS: MAGIC MOUTHWASH SUSPENSION BTL SS PRN ×2 (08:19→17:16)
[2022-10-15] MEDS: ENOXAPARIN 40MG/0.4ML SYRINGE (J1650 PER 10MG) SC SCH (08:20)
[2022-10-15] MEDS: PANTOPRAZOLE 40MG VIAL IV SCH ×2 (08:20→21:12)
[2022-10-15] MEDS: SUCRALFATE SUSP 1GM/10ML UD PO PRN ×2 (08:20→17:16)
[2022-10-15] MEDS: KCL 10MEQ/100ML SWI (KRUN) 10 MEQ in IV 1 EA IV SCH ×2 (08:20→09:43)
[2022-10-15] MEDS: CHLORHEXIDINE GLUCONATE 0.12 % 15ML UDC (PERIDEX ORAL RINSE) MT SCH ×2 (09:00→21:00)
[2022-10-15 12:14] VITALS: BP 125/86
[2022-10-15 12:43] LABS: ALKALINE PHOSPHATASE 98 U/L (46-116); ALT/SGPT 51 U/L (7.0-40); AST/SGOT 101 U/L (<34); BILIRUBIN,TOTAL 1.2 MG/DL (0.3-1.2); BLOOD UREA NITROGEN 6 MG/DL (9-23); CALCIUM LEVEL 7.7 MG/DL (8.5-10.1); CARBON DIOXIDE LEVEL 30 MMOL/L (20-31); CHLORIDE LEVEL 99 MMOL/L (98-107); CREATININE FOR GFR 0.47 MG/DL (0.55-1.30); GLOMERULAR FILTRATION RATE > 60.0 (>58); GLUCOSE, FASTING 128 MG/DL (60-100); POTASSIUM SERUM 3.2 MMOL/L (3.5-5.1); SODIUM LEVEL 139 MMOL/L (136-145); TOTAL PROTEIN 5.8 G/DL (5.7-8.2)
[2022-10-15 13:31] LABS: MAGNESIUM LEVEL 2.1 MG/DL (1.8-2.4); PHOSPHORUS LEVEL 1.3 MG/DL (2.5-4.9)
[2022-10-15] MEDS ORDERED: POTASSIUM CHLORIDE 10MEQ SR TABLET PO ONE (14:00)
[2022-10-15] MEDS ORDERED: POTASSIUM PHOSPHATE INJ 30 MMOL in D5W 500 ML IV ONE (16:00)
[2022-10-15 16:27] LABS: PLTBLUE- EDTA FREE CALC 69 K/mm3 (172-450); PLTBLUE- EDTA FREE MACHINE 63 10^3/uL (172-450)
[2022-10-15 16:32] LABS: INR 0.98; PROTHROMBIN TIME 13.2 SECONDS (12.5-14.5)
[2022-10-15 16:33] LABS: PARTIAL THROMBOPLASTIN TIME 29.2 SECONDS (24.8-34.2)
[2022-10-15 16:35] LABS: D-DIMER QUANT 2758.02 ng/ml (<500)
[2022-10-15 18:30] VITALS: BP 122/93
[2022-10-15 22:00] VITALS: BP 133/86
[2022-10-16] MEDS: PIPERACILLIN/TAZOBACTAM SOD 4.5 GM in D5W MINI-BAG PLUS 50 ML IV SCH ×2 (04:59→05:02)
[2022-10-16 05:12] VITALS: BP 122/92
[2022-10-16 05:56] LABS: BASO % 0.2 % (0.0-1.0); EOS % 0.2 % (0.0-3.0); HEMATOCRIT 34.2 % (36.0-47.0); HEMOGLOBIN 11.6 g/dl (12.0-15.5); LYMPH # 0.6 10^3/uL (1.5-5.0); LYMPH % 13.5 % (24.0-44.0); MEAN CORPUSCULAR HEMOGLOBIN 36.4 pg (27.0-33.0); MEAN CORPUSCULAR HGB CONC 33.9 g/dl (32.0-36.5); MEAN CORPUSCULAR VOLUME 107.2 fl (80.0-96.0); MONO # 0.3 10^3/uL (0.0-0.8); MONO % 8.1 % (2.0-8.0); NEUTROPHILS # 3.3 10^3/uL (1.5-8.5); NEUTROPHILS % 77.5 % (36.0-66.0); RED BLOOD COUNT 3.19 10^6/uL (4.00-5.40); WHITE BLOOD COUNT 4.2 10^3/uL (4.0-10.0)
[2022-10-16 06:07] LABS: PLATELET COUNT, AUTOMATED 77 10^3/uL (150-450)
[2022-10-16 06:23] LABS: ALBUMIN 2.9 G/DL (3.2-5.2); BLOOD UREA NITROGEN 7 MG/DL (9-23); CALCIUM LEVEL 7.7 MG/DL (8.5-10.1); CARBON DIOXIDE LEVEL 30 MMOL/L (20-31); CHLORIDE LEVEL 101 MMOL/L (98-107); CREATININE FOR GFR 0.49 MG/DL (0.55-1.30); GLOMERULAR FILTRATION RATE > 60.0 (>58); GLUCOSE, FASTING 116 MG/DL (60-100); MAGNESIUM LEVEL 2.4 MG/DL (1.8-2.4); PHOSPHORUS LEVEL 2.6 MG/DL (2.5-4.9); POTASSIUM SERUM 3.1 MMOL/L (3.5-5.1); SODIUM LEVEL 140 MMOL/L (136-145)
[2022-10-16] MEDS ORDERED: POTASSIUM CHLORIDE 10MEQ SR TABLET PO ONE (08:15)
[2022-10-16] MEDS: ENOXAPARIN 40MG/0.4ML SYRINGE (J1650 PER 10MG) SC SCH (08:27)
[2022-10-16] MEDS: INSULIN LISPRO (NovoLOG) PER UNIT SC SCH (08:28)
[2022-10-16] MEDS: PANTOPRAZOLE 40MG VIAL IV SCH (08:28)
[2022-10-16] MEDS: CHLORHEXIDINE GLUCONATE 0.12 % 15ML UDC (PERIDEX ORAL RINSE) MT SCH ×2 (08:29→08:39)
[2022-10-16] MEDS ORDERED: SUCR1ORA PO (09:40)
[2022-10-16] MEDS ORDERED: CIPR500T39 PO (09:40)
[2022-10-16] MEDS ORDERED: POTA-151 PO (09:40)
[2022-10-16] MEDS ORDERED: METR-265 PO ×2 (09:41→09:45)
== END 2022-10-16 11:27 | disposition home or self-care (01) | DRG 425 ==
LOC: EDBD 01:49 → M ED 01:49 → M ED INP 08:14 → ENRESERV 08:50 → M ICU 09:35 → M MSPAV 10-15 18:25
PROVIDERS: ADMIT Internal Medicine Critical Care Medicine; ATTEND Student in an Organized Health Care Education/Training Program
PROC: 0CJY8ZZ Inspection of Mouth and Throat, Via Natural or Artificial Opening Endoscopic (ICD-10-PCS; principal; 2022-10-15)
DX: E87.29 Other acidosis (principal); E83.51 Hypocalcemia; E83.42 Hypomagnesemia; E83.39 Other disorders of phosphorus metabolism; R13.10 Dysphagia, unspecified; K76.0 Fatty (change of) liver, not elsewhere classified; E16.2 Hypoglycemia, unspecified; K21.9 Gastro-esophageal reflux disease without esophagitis; R49.0 Dysphonia; K52.9 Noninfective gastroenteritis and colitis, unspecified; E87.6 Hypokalemia; D69.6 Thrombocytopenia, unspecified; Z79.899 Other long term (current) drug therapy

== ENCOUNTER → 2022-10-18 | Outpatient (REF) | payer OTHER ==
[~2022-10-18] MED LIST changes: +CIPR500T39 PO; +METR-265 PO; +POTA-151 PO; +SUCR1ORA PO
[2022-10-18 13:02] LABS: HEMATOCRIT 37.6 % (36.0-47.0); HEMOGLOBIN 12.9 g/dl (12.0-15.5); MEAN CORPUSCULAR HGB CONC 34.3 g/dl (32.0-36.5); PLATELET COUNT, AUTOMATED 120 10^3/uL (150-450); RED BLOOD COUNT 3.58 10^6/uL (4.00-5.40)
[2022-10-18 13:34] LABS: BLOOD UREA NITROGEN 8 MG/DL (9-23); CALCIUM LEVEL 9.6 MG/DL (8.5-10.1); CARBON DIOXIDE LEVEL 28 MMOL/L (20-31); CHLORIDE LEVEL 93 MMOL/L (98-107); GLOMERULAR FILTRATION RATE > 60.0 (>58); GLUCOSE, FASTING 122 MG/DL (60-100); MAGNESIUM LEVEL 1.7 MG/DL (1.8-2.4); POTASSIUM SERUM 3.5 MMOL/L (3.5-5.1); SODIUM LEVEL 134 MMOL/L (136-145)
== END ==
LOC: M LABDRWAD 12:28
PROVIDERS: ATTEND Radiology Diagnostic Radiology
DX: E87.29 Other acidosis (principal); E83.51 Hypocalcemia; E83.42 Hypomagnesemia; R13.10 Dysphagia, unspecified; K76.0 Fatty (change of) liver, not elsewhere classified; E16.2 Hypoglycemia, unspecified; K21.9 Gastro-esophageal reflux disease without esophagitis; R49.0 Dysphonia; K52.9 Noninfective gastroenteritis and colitis, unspecified; E87.6 Hypokalemia; D69.6 Thrombocytopenia, unspecified; Z79.899 Other long term (current) drug therapy

== ENCOUNTER → 2022-10-26 | Outpatient (CLI) | payer OTHER ==
[2022-10-26 17:00] LABS: BASO # 0.1 10^3/uL (0.0-0.2); BASO % 1.2 % (0.0-1.0); EOS # 0.1 10^3/uL (0.0-0.5); EOS % 0.6 % (0.0-3.0); HEMATOCRIT 36.5 % (36.0-47.0); HEMOGLOBIN 12.1 g/dl (12.0-15.5); LYMPH % 24.7 % (24.0-44.0); MEAN CORPUSCULAR HEMOGLOBIN 36.2 pg (27.0-33.0); MEAN CORPUSCULAR HGB CONC 33.2 g/dl (32.0-36.5); MEAN CORPUSCULAR VOLUME 109.3 fl (80.0-96.0); MONO # 0.7 10^3/uL (0.0-0.8); MONO % 8.5 % (2.0-8.0); NEUTROPHILS # 5.3 10^3/uL (1.5-8.5); NEUTROPHILS % 64.4 % (36.0-66.0); PLATELET COUNT, AUTOMATED 399 10^3/uL (150-450); RED BLOOD COUNT 3.34 10^6/uL (4.00-5.40); WHITE BLOOD COUNT 8.3 10^3/uL (4.0-10.0)
[2022-10-26 17:03] LABS: ALBUMIN 3.4 G/DL (3.2-5.2); ALKALINE PHOSPHATASE 119 U/L (46-116); ALT/SGPT 83 U/L (7.0-40); AST/SGOT 133 U/L (<34); BILIRUBIN,DIRECT 0.2 MG/DL (<0.4); BILIRUBIN,TOTAL 0.6 MG/DL (0.3-1.2); BLOOD UREA NITROGEN 7 MG/DL (9-23); CALCIUM LEVEL 9.4 MG/DL (8.5-10.1); CARBON DIOXIDE LEVEL 27 MMOL/L (20-31); CHLORIDE LEVEL 99 MMOL/L (98-107); GLOMERULAR FILTRATION RATE > 60.0 (>58); GLUCOSE, FASTING 101 MG/DL (60-100); MAGNESIUM LEVEL 1.4 MG/DL (1.8-2.4); PHOSPHORUS LEVEL 4.2 MG/DL (2.5-4.9); SODIUM LEVEL 137 MMOL/L (136-145); TOTAL PROTEIN 6.9 G/DL (5.7-8.2)
== END ==
LOC: M WUC 11:47
PROVIDERS: ATTEND Nurse Practitioner Family
DX: K76.0 Fatty (change of) liver, not elsewhere classified (principal); E83.42 Hypomagnesemia; T73.0XXS Starvation, sequela; D69.6 Thrombocytopenia, unspecified

== ENCOUNTER 2023-09-05 07:40 | Observation (INO) | payer OTHER ==
[~2023-09-05] VITALS: Ht 170.2 cm; Wt 58.0 kg
[~2023-09-05 07:40] MED LIST changes: +MECL-209 PO; -MECL1TAB31 PO
[2023-09-05 09:00] LABS: RSV AMPLIFICATION NEGATIVE (NEGATIVE)
[2023-09-05 09:58] LABS: HCG, SERUM QUALITATIVE NEGATIVE (NEGATIVE)
[2023-09-05 10:10] LABS: ALBUMIN 3.8 G/DL (3.2-5.2); ALKALINE PHOSPHATASE 296 U/L (46-116); ALT/SGPT 114 U/L (7.0-40); AST/SGOT 274 U/L (<34); BILIRUBIN,DIRECT 0.7 MG/DL (<0.4); BILIRUBIN,TOTAL 1.8 MG/DL (0.3-1.2); BLOOD UREA NITROGEN 10 MG/DL (9-23); CALCIUM LEVEL 8.8 MG/DL (8.5-10.1); CARBON DIOXIDE LEVEL 12 MMOL/L (20-31); CHLORIDE LEVEL 98 MMOL/L (98-107); CREATININE FOR GFR 0.51 MG/DL (0.55-1.30); GLOMERULAR FILTRATION RATE > 60.0 (>58); GLUCOSE, FASTING 143 MG/DL (60-100); LIPASE 47 U/L (12-53); POTASSIUM SERUM 5.5 MMOL/L (3.5-5.1); SODIUM LEVEL 132 MMOL/L (136-145)
[2023-09-05] MEDS ORDERED: NS 1,000 ML IV ONE (12:45)
[2023-09-05] MEDS ORDERED: FAMOTIDINE 20MG/2ML VIAL IVP ONE (12:45)
[2023-09-05] MEDS ORDERED: ONDANSETRON 4MG 2ML VIAL IV ONE (12:45)
[2023-09-05 13:06] LABS: VENOUS BASE EXCESS -11.6 (-2.0-2.0); VENOUS HCO3 12.5 MMOL/L (23.0-27.0); VENOUS O2 SATURATION 96.1 % (60.0-80.0); VENOUS PARTIAL PRESSURE CO2 24.7 mmHg (38.0-50.0); VENOUS PARTIAL PRESSURE O2 88.7 mmHg (30.0-50.0); VENOUS PH 7.321 UNITS (7.330-7.430); VENOUS STANDARD HCO3 15.5 MMOL/L; VENOUS TOTAL CO2 13.2 MMOL/L (24.0-28.0)
[2023-09-05 13:11] LABS: BASO # 0.1 10^3/uL (0.0-0.2); BASO % 0.5 % (0.0-1.0); HEMATOCRIT 39.9 % (36.0-47.0); HEMOGLOBIN 13.5 g/dl (12.0-15.5); LYMPH # 0.7 10^3/uL (1.5-5.0); LYMPH % 6.3 % (24.0-44.0); MEAN CORPUSCULAR HEMOGLOBIN 36.9 pg (27.0-33.0); MEAN CORPUSCULAR HGB CONC 33.8 g/dl (32.0-36.5); MONO # 0.7 10^3/uL (0.0-0.8); MONO % 6.1 % (2.0-8.0); NEUTROPHILS # 9.5 10^3/uL (1.5-8.5); NEUTROPHILS % 86.3 % (36.0-66.0); PLATELET COUNT, AUTOMATED 142 10^3/uL (150-450); RED BLOOD COUNT 3.66 10^6/uL (4.00-5.40); WHITE BLOOD COUNT 11.1 10^3/uL (4.0-10.0)
[2023-09-05 13:34] LABS: POTASSIUM SERUM 4.2 MMOL/L (3.5-5.1)
[2023-09-05 13:47] LABS: MAGNESIUM LEVEL 1.8 MG/DL (1.8-2.4)
[2023-09-05] MEDS ORDERED: ISOVUE-370 76% 100ML VIAL As Ordered ONE (14:02)
[2023-09-05 14:52] LABS: BLOOD UREA NITROGEN 11 MG/DL (9-23); CARBON DIOXIDE LEVEL 13 MMOL/L (20-31); CHLORIDE LEVEL 96 MMOL/L (98-107); CREATININE FOR GFR 0.48 MG/DL (0.55-1.30); GLOMERULAR FILTRATION RATE > 60.0 (>58); GLUCOSE, FASTING 160 MG/DL (60-100); SODIUM LEVEL 130 MMOL/L (136-145)
[2023-09-05] MEDS ORDERED: MED REC IN PROGRESS XX SCH (15:25)
[2023-09-05] MEDS ORDERED: D5W 1,000 ML IV SCH (15:30)
[2023-09-05 15:48] LABS: ACETONE/KETONE > 4.50 MMOL/L (0.02-0.27)
[2023-09-05] MEDS ORDERED: ACETAMINOPHEN TAB 650MG DOSE (2X325MG) PO PRN (16:05)
[2023-09-05] MEDS ORDERED: MOM 30ML SUSPENSION UDC PO PRN (16:05)
[2023-09-05] MEDS ORDERED: ONDANSETRON 4MG 2ML VIAL IV PRN (16:20)
[2023-09-05] MEDS ORDERED: EXCETAB32 PO (16:24)
[2023-09-05] MEDS ORDERED: THERTAB21 PO (16:24)
[2023-09-05] MEDS ORDERED: HOME MED LIST COMPLETE! XX SCH (16:25)
[2023-09-05] MEDS: SODIUM BICARBONATE 150 MEQ in D5W 1,000 ML IV SCH (17:07)
[2023-09-05 17:39] LABS: INR 1.22; PROTHROMBIN TIME 15.1 SECONDS (12.5-14.5)
[2023-09-05 17:58] LABS: OSMOLALITY SERUM 288 MOSM/KG (275-295)
[2023-09-05] MEDS: LevoFLOXacin 750 MG TABLET PO SCH (18:01)
[2023-09-05 18:11] VITALS: BP 153/71; TEMP 98.4; O2SAT 100
[2023-09-05 18:28] LABS: OSMOLALITY URINE 720 MOSM/KG (50-1400)
[2023-09-05 18:40] LABS: SODIUM,RANDOM URINE 61 MMOL/L
[2023-09-05 19:14] LABS: HEPATITIS B CORE ANTIBODY IGM NEGATIVE (NEGATIVE); HEPATITIS C VIRUS ABY INDEX 0.06 INDEX (<0.8)
[2023-09-05 22:00] VITALS: BP 151/98; TEMP 97.9; O2SAT 99
[2023-09-06] VITALS (8 sets, daily range): BP systolic 136–150; BP diastolic 88–97; TEMP 97.5–98.8; O2SAT 97–100
[2023-09-06] MEDS: SODIUM BICARBONATE 150 MEQ in D5W 1,000 ML IV SCH (01:02)
[2023-09-06 05:09] LABS: VENOUS BASE EXCESS 7.4 (-2.0-2.0); VENOUS HCO3 30.9 MMOL/L (23.0-27.0); VENOUS PARTIAL PRESSURE CO2 39.4 mmHg (38.0-50.0); VENOUS PARTIAL PRESSURE O2 45.5 mmHg (30.0-50.0); VENOUS PH 7.512 UNITS (7.330-7.430); VENOUS SITE NOT GIVEN; VENOUS STANDARD HCO3 30.9 MMOL/L; VENOUS TOTAL CO2 32.1 MMOL/L (24.0-28.0)
[2023-09-06 05:14] LABS: HEMATOCRIT 34.8 % (36.0-47.0); HEMOGLOBIN 12.1 g/dl (12.0-15.5); MEAN CORPUSCULAR HEMOGLOBIN 37.1 pg (27.0-33.0); MEAN CORPUSCULAR HGB CONC 34.8 g/dl (32.0-36.5); MEAN CORPUSCULAR VOLUME 106.7 fl (80.0-96.0); RED BLOOD COUNT 3.26 10^6/uL (4.00-5.40); WHITE BLOOD COUNT 4.7 10^3/uL (4.0-10.0)
[2023-09-06 05:32] LABS: PLATELET COUNT, AUTOMATED 91 10^3/uL (150-450)
[2023-09-06 05:39] LABS: ACETONE/KETONE 2.65 MMOL/L (0.02-0.27)
[2023-09-06 05:48] LABS: ALKALINE PHOSPHATASE 211 U/L (46-116); ALT/SGPT 68 U/L (7.0-40); AST/SGOT 150 U/L (<34); BILIRUBIN,DIRECT 0.7 MG/DL (<0.4); BILIRUBIN,TOTAL 1.4 MG/DL (0.3-1.2); BLOOD UREA NITROGEN 7 MG/DL (9-23); CARBON DIOXIDE LEVEL 30 MMOL/L (20-31); CHLORIDE LEVEL 96 MMOL/L (98-107); CREATININE FOR GFR 0.39 MG/DL (0.55-1.30); GLOMERULAR FILTRATION RATE > 60.0 (>58); GLUCOSE, FASTING 137 MG/DL (60-100); MAGNESIUM LEVEL 1.5 MG/DL (1.8-2.4); POTASSIUM SERUM 3.1 MMOL/L (3.5-5.1); SODIUM LEVEL 135 MMOL/L (136-145); TOTAL PROTEIN 6.2 G/DL (5.7-8.2)
[2023-09-06] MEDS ORDERED: LORazepam 2 MG TAB PO PRN (07:10)
[2023-09-06 07:16] LABS: PLTBLUE- EDTA FREE CALC 79 K/mm3 (172-450)
[2023-09-06 07:20] LABS: PLTBLUE- EDTA FREE MACHINE 72 10^3/uL (172-450)
[2023-09-06] MEDS ORDERED: INFLUENZA QUADRIVALENT PF VACCINE 0.5ML SYRINGE IM.IMMUN ONE (09:00)
[2023-09-06] MEDS: ENOXAPARIN 40MG/0.4ML SYRINGE (J1650 PER 10MG) SC SCH (09:19)
[2023-09-06] MEDS: MAG SULF 1GM/100ML (MAG RUN) 1 GM in IV 1 EA IV SCH ×4 (09:19→12:00)
[2023-09-06] MEDS: PANTOPRAZOLE 40MG TAB (PROTONIX) PO SCH (09:20)
[2023-09-06] MEDS: FOLIC ACID 1MG TAB PO SCH (09:20)
[2023-09-06] MEDS: MULTIVITAMINS/MINERALS THERAP 1 TAB PO SCH (09:20)
[2023-09-06] MEDS: THIAMINE 100 MG TAB PO SCH ×2 (09:20→20:18)
[2023-09-06] MEDS: POTASSIUM CHLORIDE 10MEQ SR TABLET PO SCH ×2 (09:20→10:11)
[2023-09-06] MEDS ORDERED: FOLI1TAB11 PO (11:40)
[2023-09-06] MEDS ORDERED: ONDA4TAB6 PO (11:40)
[2023-09-06] MEDS ORDERED: THIA100TA PO (11:40)
[2023-09-06] MEDS ORDERED: LEVO1TAB40 PO (11:40)
[2023-09-06 12:29] LABS: INR 1.18; PROTHROMBIN TIME 14.7 SECONDS (12.5-14.5)
[2023-09-06 12:30] LABS: PARTIAL THROMBOPLASTIN TIME 35.8 SECONDS (24.8-34.2)
[2023-09-06 12:33] LABS: D-DIMER QUANT 0.49 ug/mL (<0.5)
[2023-09-06 12:56] LABS: PLATELET COUNT, AUTOMATED 91 10^3/uL (150-450)
[2023-09-06 13:56] LABS: BASO % 0.4 % (0.0-1.0); EOS % 0.4 % (0.0-3.0); LYMPH # 0.7 10^3/uL (1.5-5.0); LYMPH % 12.2 % (24.0-44.0); MONO # 0.4 10^3/uL (0.0-0.8); MONO % 7.1 % (2.0-8.0); NEUTROPHILS # 4.5 10^3/uL (1.5-8.5); NEUTROPHILS % 79.4 % (36.0-66.0)
[2023-09-06] MEDS: LevoFLOXacin 750 MG TABLET PO SCH (17:16)
[2023-09-06] MEDS ORDERED: RAMELTEON 8 MG TAB (ROZEREM) PO PRN (21:00)
[2023-09-07 02:00] VITALS: BP 137/97; TEMP 97.9; O2SAT 98
[2023-09-07 05:34] VITALS: BP 140/99; TEMP 97.7; O2SAT 97
[2023-09-07 05:40] VITALS: BP 140/99
[2023-09-07 06:16] LABS: VENOUS BASE EXCESS -3.1 (-2.0-2.0); VENOUS HCO3 24.1 MMOL/L (23.0-27.0); VENOUS O2 SATURATION 71.4 % (60.0-80.0); VENOUS PARTIAL PRESSURE CO2 51.1 mmHg (38.0-50.0); VENOUS PARTIAL PRESSURE O2 42.1 mmHg (30.0-50.0); VENOUS PH 7.291 UNITS (7.330-7.430); VENOUS SITE NOT GIVEN; VENOUS STANDARD HCO3 21.3 MMOL/L; VENOUS TOTAL CO2 25.6 MMOL/L (24.0-28.0)
[2023-09-07 06:21] LABS: HEMATOCRIT 40.9 % (36.0-47.0); HEMOGLOBIN 13.8 g/dl (12.0-15.5); MEAN CORPUSCULAR HEMOGLOBIN 36.7 pg (27.0-33.0); MEAN CORPUSCULAR HGB CONC 33.7 g/dl (32.0-36.5); MEAN CORPUSCULAR VOLUME 108.8 fl (80.0-96.0); PLATELET COUNT, AUTOMATED 128 10^3/uL (150-450); RED BLOOD COUNT 3.76 10^6/uL (4.00-5.40); WHITE BLOOD COUNT 6.7 10^3/uL (4.0-10.0)
[2023-09-07 06:46] LABS: ALBUMIN 3.5 G/DL (3.2-5.2); ALKALINE PHOSPHATASE 249 U/L (46-116); ALT/SGPT 100 U/L (7.0-40); AST/SGOT 256 U/L (<34); BILIRUBIN,DIRECT 0.7 MG/DL (<0.4); BILIRUBIN,TOTAL 1.5 MG/DL (0.3-1.2); BLOOD UREA NITROGEN 8 MG/DL (9-23); CALCIUM LEVEL 8.7 MG/DL (8.5-10.1); CARBON DIOXIDE LEVEL 25 MMOL/L (20-31); CHLORIDE LEVEL 97 MMOL/L (98-107); CREATININE FOR GFR 0.45 MG/DL (0.55-1.30); GLOMERULAR FILTRATION RATE > 60.0 (>58); GLUCOSE, FASTING 97 MG/DL (60-100); MAGNESIUM LEVEL 1.9 MG/DL (1.8-2.4); POTASSIUM SERUM 3.5 MMOL/L (3.5-5.1); SODIUM LEVEL 133 MMOL/L (136-145); TOTAL PROTEIN 7.4 G/DL (5.7-8.2)
[2023-09-07] MEDS ORDERED: LR 1,000 ML IV ONE (07:40)
[2023-09-07] MEDS: FOLIC ACID 1MG TAB PO SCH (09:35)
[2023-09-07] MEDS: ENOXAPARIN 40MG/0.4ML SYRINGE (J1650 PER 10MG) SC SCH (09:35)
[2023-09-07] MEDS: MULTIVITAMINS/MINERALS THERAP 1 TAB PO SCH (09:35)
[2023-09-07] MEDS: PANTOPRAZOLE 40MG TAB (PROTONIX) PO SCH (09:35)
[2023-09-07 09:36] VITALS: BP 137/100
[2023-09-07] MEDS: THIAMINE 100 MG TAB PO SCH (09:36)
[2023-09-07 10:00] VITALS: TEMP 97.5; O2SAT 98
[2023-09-07 10:28] LABS: CHOLESTEROL LEVEL 291 MG/DL (<200); CHOLESTEROL RISK RATIO 4.57 (<5); HDL CHOLESTEROL 63.6 MG/DL (>40); NON-HDL-C 227.4 MG/DL; TRIGLYCERIDES LEVEL 142 MG/DL (<150)
[2023-09-07 10:57] LABS: HIV 1&2 SCREEN NEGATIVE (NEGATIVE)
[2023-09-07 12:32] VITALS: BP 169/120
[2023-09-07 13:04] LABS: ALBUMIN 3.3 G/DL (3.2-5.2); BILIRUBIN,DIRECT 0.7 MG/DL (<0.4); BILIRUBIN,TOTAL 1.3 MG/DL (0.3-1.2); TOTAL PROTEIN 6.8 G/DL (5.7-8.2)
[2023-09-07] MEDS ORDERED: OXAZ30CA2 PO ×2 (13:41→13:57)
[2023-09-07] MEDS ORDERED: OXAZ15CA4 PO ×3 (13:41→14:01)
[2023-09-08] MEDS ORDERED: THIA100T7 PO (17:43)
[2023-09-08] MEDS ORDERED: FOLI1TAB11 PO (17:43)
[2023-09-08] MEDS ORDERED: ONDA4TAB6 PO (17:43)
[2023-09-08] MEDS ORDERED: LEVO1TAB40 PO (17:43)
[2023-09-08] MEDS ORDERED: OXAZ15CA4 PO (17:49)
[2023-09-08] MEDS ORDERED: OXAZ30CA2 PO (17:49)
[2023-09-12 16:11] LABS: ANTI-MITOCHONDRIAL ANTIBODY <20.0 Units (0.0-20.0); ANTINUCLEAR ANTIBODIES DIRECT Negative (Negative); LIVER-KIDNEY MICROSOMAL ABY <20.1 Units (0.0-20.0)
[2023-09-13 16:08] LABS: CERULOPLASMIN 25.2 mg/dL (19.0-39.0)
== END 2023-09-07 13:59 | disposition left against medical advice (07) ==
LOC: M ED 07:40 → M ED INP 16:02 → M MSPAV 18:11
PROVIDERS: ADMIT Student in an Organized Health Care Education/Training Program; ATTEND Student in an Organized Health Care Education/Training Program
DX: E87.21 Acute metabolic acidosis (principal); R11.10 Vomiting, unspecified; F10.132 Alcohol abuse with withdrawal with perceptual disturbance; R74.01 Elevation of levels of liver transaminase levels; K76.0 Fatty (change of) liver, not elsewhere classified; D69.6 Thrombocytopenia, unspecified; N39.0 Urinary tract infection, site not specified; A04.0 Enteropathogenic Escherichia coli infection; E87.1 Hypo-osmolality and hyponatremia; Z79.899 Other long term (current) drug therapy; Z88.1 Allergy status to other antibiotic agents
CPT/HCPCS: 36415; 74177; 76705; 80048; 80061; 80076; 80503; 81000; 81015; 82010; 82390; 82525; 82803; 83516; 83605; 83615; 83690; 83735; 83930; 83935; 84145; 84300; 84443; 84703; 85025; 85027; 85046; 85049; 85055; 85379; 85384; 85610; 85730; 86015; 86037; 86038; 86255; 86376; 86705; 86709; 86803; 87088; 87186; 87340; 87389; 87631; 93005; 96361; 96372; 96374; 96375; 96376; 99284; J1650; J2405; J3475; Q9967; S0028

== ENCOUNTER 2023-09-08 12:28 | Inpatient (IN) | payer OTHER ==
[~2023-09-08] VITALS: Ht 170.2 cm; Wt 60.3 kg
[~2023-09-08 12:28] MED LIST changes: +EXCETAB32 PO; +FOLI1TAB11 PO; +LEVO1TAB40 PO; +ONDA4TAB6 PO; +OXAZ15CA4 PO; +OXAZ30CA2 PO; +THERTAB21 PO; +THIA100TA PO
[2023-09-08 14:29] LABS: HEMATOCRIT 36.4 % (36.0-47.0); HEMOGLOBIN 12.9 g/dl (12.0-15.5); MEAN CORPUSCULAR HEMOGLOBIN 38.1 pg (27.0-33.0); MEAN CORPUSCULAR HGB CONC 35.4 g/dl (32.0-36.5); MEAN CORPUSCULAR VOLUME 107.4 fl (80.0-96.0); PLATELET COUNT, AUTOMATED 126 10^3/uL (150-450); RED BLOOD COUNT 3.39 10^6/uL (4.00-5.40); WHITE BLOOD COUNT 7.8 10^3/uL (4.0-10.0)
[2023-09-08] MEDS ORDERED: NS 1,000 ML IV ONE (14:30)
[2023-09-08] MEDS ORDERED: PROMETHAZINE 25MG/ML 1ML VIAL IV ONE (14:30)
[2023-09-08] MEDS ORDERED: LORazepam 2 MG TAB PO PRN (14:30)
[2023-09-08 14:54] LABS: ALBUMIN 3.6 G/DL (3.2-5.2); ALKALINE PHOSPHATASE 210 U/L (46-116); ALT/SGPT 140 U/L (7.0-40); AST/SGOT 294 U/L (<34); BILIRUBIN,DIRECT 0.5 MG/DL (<0.4); BILIRUBIN,TOTAL 1.2 MG/DL (0.3-1.2); BLOOD UREA NITROGEN 10 MG/DL (9-23); CARBON DIOXIDE LEVEL 24 MMOL/L (20-31); CHLORIDE LEVEL 101 MMOL/L (98-107); CREATININE FOR GFR 0.36 MG/DL (0.55-1.30); GLOMERULAR FILTRATION RATE > 60.0 (>58); GLUCOSE, FASTING 93 MG/DL (60-100); LIPASE 174 U/L (12-53); MAGNESIUM LEVEL 1.6 MG/DL (1.8-2.4); POTASSIUM SERUM 4.3 MMOL/L (3.5-5.1); SODIUM LEVEL 136 MMOL/L (136-145); TOTAL PROTEIN 7.2 G/DL (5.7-8.2)
[2023-09-08] MEDS ORDERED: MAG SULF 1GM/100ML (MAG RUN) 1 GM in IV 1 EA IV ONE (16:55)
[2023-09-08] MEDS ORDERED: LEVO1TAB40 PO (17:43)
[2023-09-08] MEDS ORDERED: ONDA4TAB6 PO (17:43)
[2023-09-08] MEDS ORDERED: FOLI1TAB11 PO (17:43)
[2023-09-08] MEDS ORDERED: THIA100T7 PO (17:43)
[2023-09-08] MEDS ORDERED: OXAZ30CA2 PO (17:49)
[2023-09-08] MEDS ORDERED: OXAZ15CA4 PO (17:49)
[2023-09-08] MEDS ORDERED: HOME MED LIST COMPLETE! XX SCH (17:50)
[2023-09-08] MEDS: OXAZEPAM 15MG CAP PO SCH ×2 (17:52→23:24)
[2023-09-08 19:52] LABS: APPEARANCE, URINE CLEAR (CLEAR); BACTERIA, URINE AUTO NEGATIVE (NEGATIVE); BILIRUBIN, URINE AUTO NEGATIVE (NEGATIVE); BLOOD, URINE BLOOD NEGATIVE (NEGATIVE); COLOR, URINE YELLOW (YELLOW); GLUCOSE, URINE (UA) AUTO NEGATIVE (NEGATIVE); KETONE, URINE AUTO TRACE mg/dL (NEGATIVE); LEUKOCYTE ESTERASE, URINE AUTO NEGATIVE (NEGATIVE); MUCUS, URINE SMALL (NEGATIVE); NITRITE, URINE AUTO NEGATIVE (NEGATIVE); PROTEIN, URINE AUTO NEGATIVE (NEGATIVE); RBC, URINE AUTO 0 /HPF (0-3); SPECIFIC GRAVITY URINE AUTO 1.005 (1.002-1.035); SQUAMOUS EPITHELIAL CELL UR AU 0 /HPF (0-6); UROBILINOGEN, URINE AUTO 0.2 mg/dL (0.0-2.0); WBC, URINE AUTO 1 /HPF (0-3)
[2023-09-08] MEDS ORDERED: THIAMINE 100 MG TAB PO SCH (21:00)
[2023-09-08 21:50] VITALS: BP 127/91; TEMP 97.3; O2SAT 97
[2023-09-08] MEDS: THIAMINE 100 MG TAB PO SCH (22:43)
[2023-09-09] MEDS: OXAZEPAM 15MG CAP PO SCH ×4 (05:13→23:42)
[2023-09-09 05:50] VITALS: BP 131/94; TEMP 97.3; O2SAT 97
[2023-09-09] MEDS: PANTOPRAZOLE 40MG TAB (PROTONIX) PO SCH (08:18)
[2023-09-09] MEDS: THIAMINE 100 MG TAB PO SCH ×2 (08:18→21:13)
[2023-09-09] MEDS: FOLIC ACID 1MG TAB PO SCH (08:18)
[2023-09-09] MEDS: MULTIVITAMINS/MINERALS THERAP 1 TAB PO SCH (08:18)
[2023-09-09 08:28] LABS: INR 1.09; PROTHROMBIN TIME 13.8 SECONDS (12.5-14.5)
[2023-09-09 08:29] LABS: PARTIAL THROMBOPLASTIN TIME 28.8 SECONDS (24.8-34.2)
[2023-09-09] MEDS ORDERED: MULTIVITAMINS/MINERALS THERAP 1 TAB PO SCH (09:00)
[2023-09-09] MEDS ORDERED: FOLIC ACID 1MG TAB PO SCH (09:00)
[2023-09-09 10:01] LABS: ALBUMIN 2.8 G/DL (3.2-5.2); ALKALINE PHOSPHATASE 179 U/L (46-116); ALT/SGPT 135 U/L (7.0-40); AST/SGOT 254 U/L (<34); BILIRUBIN,TOTAL 0.9 MG/DL (0.3-1.2); BLOOD UREA NITROGEN 5 MG/DL (9-23); CARBON DIOXIDE LEVEL 28 MMOL/L (20-31); CHLORIDE LEVEL 104 MMOL/L (98-107); CREATININE FOR GFR 0.42 MG/DL (0.55-1.30); GLOMERULAR FILTRATION RATE > 60.0 (>58); GLUCOSE, FASTING 89 MG/DL (60-100); POTASSIUM SERUM 3.4 MMOL/L (3.5-5.1); SODIUM LEVEL 138 MMOL/L (136-145); TOTAL PROTEIN 5.7 G/DL (5.7-8.2)
[2023-09-09] MEDS: NALTREXONE 50 MG TAB PO SCH (11:30)
[2023-09-09 14:00] VITALS: BP 134/91; TEMP 97.3; O2SAT 97
[2023-09-09 20:06] VITALS: BP 114/77; TEMP 98.3; O2SAT 97
[2023-09-09 22:00] VITALS: BP 114/77
[2023-09-10 04:53] VITALS: BP 119/81; TEMP 97.5; O2SAT 95
[2023-09-10] MEDS: OXAZEPAM 15MG CAP PO SCH ×3 (06:10→17:47)
[2023-09-10 06:12] VITALS: BP 119/81
[2023-09-10] MEDS: THIAMINE 100 MG TAB PO SCH ×2 (09:22→20:34)
[2023-09-10] MEDS: FOLIC ACID 1MG TAB PO SCH (09:22)
[2023-09-10] MEDS: NALTREXONE 50 MG TAB PO SCH (09:22)
[2023-09-10] MEDS: PANTOPRAZOLE 40MG TAB (PROTONIX) PO SCH (09:22)
[2023-09-10] MEDS: MULTIVITAMINS/MINERALS THERAP 1 TAB PO SCH (09:22)
[2023-09-10] MEDS ORDERED: POTASSIUM CHLORIDE 10MEQ SR TABLET PO ONE (09:30)
[2023-09-10 14:00] VITALS: BP 115/80; TEMP 97.3; O2SAT 96
[2023-09-10 20:34] VITALS: BP 136/99; TEMP 97.5; O2SAT 97
[2023-09-10 20:35] VITALS: BP 136/99
[2023-09-11] MEDS: OXAZEPAM 15MG CAP PO SCH ×3 (00:13→12:13)
[2023-09-11 05:42] VITALS: BP 113/76; TEMP 97.3; O2SAT 98
[2023-09-11 05:43] VITALS: BP 113/76
[2023-09-11] MEDS: NALTREXONE 50 MG TAB PO SCH (09:13)
[2023-09-11] MEDS: THIAMINE 100 MG TAB PO SCH (09:13)
[2023-09-11] MEDS: MULTIVITAMINS/MINERALS THERAP 1 TAB PO SCH (09:13)
[2023-09-11] MEDS: PANTOPRAZOLE 40MG TAB (PROTONIX) PO SCH (09:13)
[2023-09-11] MEDS: FOLIC ACID 1MG TAB PO SCH (09:13)
== END 2023-09-11 15:29 | disposition home or self-care (01) | DRG 896 ==
LOC: M ED 12:28 → M ED INP 17:21 → M MSPAV 21:40
PROVIDERS: ADMIT General Practice; ATTEND Student in an Organized Health Care Education/Training Program
DX: F10.132 Alcohol abuse with withdrawal with perceptual disturbance (principal); U07.1 COVID-19; R74.01 Elevation of levels of liver transaminase levels; K70.9 Alcoholic liver disease, unspecified; Z88.1 Allergy status to other antibiotic agents; Z79.899 Other long term (current) drug therapy

== ENCOUNTER → 2023-09-28 | Outpatient (CLI) | payer OTHER ==
[~2023-09-28] MED LIST changes: +THIA100T7 PO
[2023-09-28 21:41] LABS: BASO % 0.4 % (0.0-1.0); EOS # 0.1 10^3/uL (0.0-0.5); EOS % 1.3 % (0.0-3.0); HEMATOCRIT 37.8 % (36.0-47.0); HEMOGLOBIN 12.3 g/dl (12.0-15.5); LYMPH # 1.9 10^3/uL (1.5-5.0); LYMPH % 24.8 % (24.0-44.0); MEAN CORPUSCULAR HGB CONC 32.5 g/dl (32.0-36.5); MEAN CORPUSCULAR VOLUME 107.7 fl (80.0-96.0); MONO # 0.5 10^3/uL (0.0-0.8); MONO % 6.4 % (2.0-8.0); PLATELET COUNT, AUTOMATED 223 10^3/uL (150-450); RED BLOOD COUNT 3.51 10^6/uL (4.00-5.40); WHITE BLOOD COUNT 7.5 10^3/uL (4.0-10.0)
[2023-09-28 21:53] LABS: ALBUMIN 3.3 G/DL (3.2-5.2); ALKALINE PHOSPHATASE 114 U/L (46-116); ALT/SGPT 64 U/L (7.0-40); AST/SGOT 109 U/L (<34); BILIRUBIN,DIRECT 0.2 MG/DL (<0.4); BILIRUBIN,TOTAL 0.4 MG/DL (0.3-1.2); BLOOD UREA NITROGEN 8 MG/DL (9-23); CALCIUM LEVEL 9.1 MG/DL (8.5-10.1); CARBON DIOXIDE LEVEL 29 MMOL/L (20-31); CHLORIDE LEVEL 106 MMOL/L (98-107); CREATININE FOR GFR 0.52 MG/DL (0.55-1.30); GLOMERULAR FILTRATION RATE > 60.0 (>58); GLUCOSE, FASTING 87 MG/DL (60-100); MAGNESIUM LEVEL 1.7 MG/DL (1.8-2.4); SODIUM LEVEL 143 MMOL/L (136-145); TOTAL PROTEIN 6.8 G/DL (5.7-8.2)
== END ==
LOC: M WUC 15:31
PROVIDERS: ATTEND Nurse Practitioner Family
DX: R74.01 Elevation of levels of liver transaminase levels (principal); D69.6 Thrombocytopenia, unspecified; E83.42 Hypomagnesemia

== ENCOUNTER → 2025-06-23 | Outpatient (CLI) | payer OTHER ==
[~2025-06-23] MED LIST changes: +ONDA-282 PO; -ONDA4TAB6 PO
[2025-06-23 16:00] LABS: BASO # 0.1 10^3/uL (0.0-0.2); BASO % 0.9 % (0.0-1.0); EOS # 0.0 10^3/uL (0.0-0.5); EOS % 0.4 % (0.0-3.0); LYMPH # 1.2 10^3/uL (1.5-5.0); LYMPH % 14.3 % (24.0-44.0); MONO # 0.6 10^3/uL (0.0-0.8); MONO % 6.8 % (2.0-8.0); NEUTROPHILS # 6.5 10^3/uL (1.5-8.5); NEUTROPHILS % 76.9 % (36.0-66.0)
[2025-06-23 16:26] LABS: ALT/SGPT 87 U/L (7.0-40); AST/SGOT 438 U/L (<34); CALCIUM LEVEL 8.1 MG/DL (8.5-10.1); CARBON DIOXIDE LEVEL 28 MMOL/L (20-31); CHLORIDE LEVEL 96 MMOL/L (98-107); CHOLESTEROL LEVEL 296 MG/DL (<200); CHOLESTEROL RISK RATIO 23.30 (<5); CREATININE FOR GFR 0.44 MG/DL (0.55-1.30); FREE T4 1.86 NG/DL (0.89-1.76); GLOMERULAR FILTRATION RATE > 90.0 (>58); LDL CHOLESTEROL 243.5 MG/DL (<100); MAGNESIUM LEVEL 1.7 MG/DL (1.8-2.4); NON-HDL-C 283.3 MG/DL; POTASSIUM SERUM 4.3 MMOL/L (3.5-5.1); SODIUM LEVEL 137 MMOL/L (136-145); TRIGLYCERIDES LEVEL 199 MG/DL (<150); VITAMIN B12 LEVEL 972 PG/ML (211-911)
[2025-06-23 16:28] LABS: PLATELET COUNT, AUTOMATED 97 10^3/uL (150-450)
== END ==
LOC: M PLALAB 12:18
PROVIDERS: ATTEND Nurse Practitioner Family
DX: Z00.00 Encounter for general adult medical examination without abnormal findings (principal); R14.0 Abdominal distension (gaseous); R03.0 Elevated blood-pressure reading, without diagnosis of hypertension; F10.10 Alcohol abuse, uncomplicated; R63.0 Anorexia; R25.3 Fasciculation

== ENCOUNTER → 2025-07-23 | Outpatient (CLI) | payer OTHER ==
[2025-07-23 17:54] LABS: INR 1.26
[2025-07-23 18:07] LABS: ALT/SGPT 180 U/L (7.0-40); AST/SGOT 245 U/L (<34); CALCIUM LEVEL 7.7 MG/DL (8.5-10.1); CARBON DIOXIDE LEVEL 29 MMOL/L (20-31); CHLORIDE LEVEL 96 MMOL/L (98-107); CREATININE FOR GFR 0.64 MG/DL (0.55-1.30); GLOMERULAR FILTRATION RATE > 90.0 (>58); POTASSIUM SERUM 3.4 MMOL/L (3.5-5.1); SODIUM LEVEL 138 MMOL/L (136-145)
== END ==
LOC: M WUC 15:34
PROVIDERS: ATTEND Nurse Practitioner Family
DX: K70.11 Alcoholic hepatitis with ascites (principal)

== ENCOUNTER → 2025-07-28 | Outpatient (CLI) | payer OTHER ==
[2025-07-28 18:05] LABS: INR 1.39
[2025-07-28 18:08] LABS: ALT/SGPT 163 U/L (7.0-40); AST/SGOT 222 U/L (<34); CALCIUM LEVEL 7.9 MG/DL (8.5-10.1); CARBON DIOXIDE LEVEL 31 MMOL/L (20-31); CHLORIDE LEVEL 93 MMOL/L (98-107); CREATININE FOR GFR 0.61 MG/DL (0.55-1.30); GLOMERULAR FILTRATION RATE > 90.0 (>58); POTASSIUM SERUM 3.8 MMOL/L (3.5-5.1); SODIUM LEVEL 133 MMOL/L (136-145)
== END ==
LOC: M WUC 15:32
PROVIDERS: ATTEND Internal Medicine Gastroenterology
DX: K70.11 Alcoholic hepatitis with ascites (principal)

== ENCOUNTER → 2025-08-04 | Outpatient (CLI) | payer OTHER ==
[2025-08-04 16:56] LABS: BASO # 0.0 10^3/uL (0.0-0.2); BASO % 0.1 % (0.0-1.0); EOS # 0.0 10^3/uL (0.0-0.5); EOS % 0.1 % (0.0-3.0); LYMPH # 0.5 10^3/uL (1.5-5.0); LYMPH % 3.9 % (24.0-44.0); MONO # 0.4 10^3/uL (0.0-0.8); MONO % 3.5 % (2.0-8.0); NEUTROPHILS # 10.6 10^3/uL (1.5-8.5); NEUTROPHILS % 91.6 % (36.0-66.0); PLATELET COUNT, AUTOMATED 114 10^3/uL (150-450)
[2025-08-04 17:15] LABS: INR 1.5
[2025-08-04 17:25] LABS: ALT/SGPT 105 U/L (7.0-40); AST/SGOT 137 U/L (<34); CALCIUM LEVEL 8.3 MG/DL (8.5-10.1); CARBON DIOXIDE LEVEL 28 MMOL/L (20-31); CHLORIDE LEVEL 96 MMOL/L (98-107); CREATININE FOR GFR 0.68 MG/DL (0.55-1.30); GLOMERULAR FILTRATION RATE > 90.0 (>58); POTASSIUM SERUM 3.6 MMOL/L (3.5-5.1); SODIUM LEVEL 136 MMOL/L (136-145)
== END ==
LOC: M WUC 15:33
PROVIDERS: ATTEND Internal Medicine Gastroenterology
DX: K70.11 Alcoholic hepatitis with ascites (principal)

== ENCOUNTER → 2025-08-13 | Outpatient (CLI) | payer OTHER ==
[2025-08-13 17:30] LABS: INR 1.31
[2025-08-13 17:36] LABS: BASO # 0.0 10^3/uL (0.0-0.2); BASO % 0.3 % (0.0-1.0); EOS # 0.1 10^3/uL (0.0-0.5); EOS % 0.8 % (0.0-3.0); LYMPH # 1.7 10^3/uL (1.5-5.0); LYMPH % 18.7 % (24.0-44.0); MONO # 0.9 10^3/uL (0.0-0.8); MONO % 10.5 % (2.0-8.0); NEUTROPHILS # 6.1 10^3/uL (1.5-8.5); NEUTROPHILS % 68.9 % (36.0-66.0); PLATELET COUNT, AUTOMATED 112 10^3/uL (150-450)
[2025-08-13 17:44] LABS: ALT/SGPT 48 U/L (7.0-40); AST/SGOT 104 U/L (<34); CALCIUM LEVEL 7.9 MG/DL (8.5-10.1); CARBON DIOXIDE LEVEL 29 MMOL/L (20-31); CHLORIDE LEVEL 98 MMOL/L (98-107); CREATININE FOR GFR 0.60 MG/DL (0.55-1.30); GLOMERULAR FILTRATION RATE > 90.0 (>58); POTASSIUM SERUM 3.5 MMOL/L (3.5-5.1); SODIUM LEVEL 139 MMOL/L (136-145)
== END ==
LOC: M WUC 15:28
PROVIDERS: ATTEND Internal Medicine Gastroenterology
DX: K70.11 Alcoholic hepatitis with ascites (principal)

== ENCOUNTER → 2025-08-25 | Outpatient (CLI) | payer OTHER ==
[2025-08-25 19:37] LABS: ALT/SGPT 37 U/L (7.0-40); AST/SGOT 95 U/L (<34); CALCIUM LEVEL 7.7 MG/DL (8.5-10.1); CARBON DIOXIDE LEVEL 30 MMOL/L (20-31); CHLORIDE LEVEL 100 MMOL/L (98-107); CREATININE FOR GFR 0.54 MG/DL (0.55-1.30); GLOMERULAR FILTRATION RATE > 90.0 (>58); POTASSIUM SERUM 3.0 MMOL/L (3.5-5.1); SODIUM LEVEL 141 MMOL/L (136-145)
== END ==
LOC: M WUC 15:28
PROVIDERS: ATTEND Internal Medicine Gastroenterology
DX: K70.11 Alcoholic hepatitis with ascites (principal)